=== PATIENT | female | born 1950 | race Caucasian/White ===

== ENCOUNTER 2021-07-03 18:36 | Emergency (ER) | payer MEDICARE, SELFPAY ==
--- NOTE | ~2021-07-03 | XR_ITS ---
XR foot LT min 3V DATE: 07/03/2021 19:19 INDICATION: Rolled foot. Lateral pain. TECHNIQUE: 4 views COMPARISON: None FINDINGS: There is a transverse nondisplaced intra-articular fracture of the base of the fifth metata rsal bone. Hallux valgus and bunion deformity. There is mild osteoarthritic change at the first metatarsophalangeal joint. Mild plantar calcaneal enthesopathy. Diffuse osteopenia. IMPRESSION: Linear nondisplaced intra-articular fracture of the base of the fifth metatarsal bone Reviewed, dictated and finalized at location A. IMPRESSION: Linear nondisplaced intra-articular fracture of the base of the fif th metatarsal bone
--- NOTE | ~2021-07-03 | XR_ITS ---
XR ankle LT min 3V DATE: 07/03/2021 19:19 INDICATION: Rolled ankle and foot. Lateral pain. TECHNIQUE: 4 views COMPARISON: None FINDINGS: There is soft tissue swelling, greater laterally. Diffuse osteopenia. No fracture or dislocation of the ankle or disruption of the ankle mortise is detected. There is a linear nondisplaced intra-articular fracture of the base of the fifth metatarsal bone. Plantar calcaneal enthesopathy. IMPRESSION: Ankle soft tissue swelling, greatest laterally Linear nondisplaced and articular fracture of the base of the fifth metatarsal bone Reviewed, dictated and finalized at location A.
[2021-07-03 18:44] VITALS: BP 114/50; PULSE 68; RESP 18; TEMP 36.9; O2SAT 99
--- NOTE | 2021-07-03 18:57 | ED.LOWEXIN ---
HPI - Extremity Injury (Lower) General Chief Complaint: Extremity Injury, Lower Stated Complaint: left foot injury Time Seen by Provider: 07/03/21 18:39 Source: patient Mode of arrival: wheelchair Limitations: no limitations History of Present Illness HPI Narrative: 70-year-old female presents to [facility] with complaints of pain and swelling to the lateral aspect of her left ankle and left foot since 1 PM today. Patient reports that her foot fell asleep when she attempted to get up and fell twisting her left foot and ankle. Patient denies hitting her head or loss of consciousness. Patient does report history of bilateral ankle swelling MD complaint: ankle injury and foot injury Onset (ago): hour(s) (6) Type of Injury: inversion Place: home Context: fall Other symptoms: none Related Data Home Medications Medication Instructions Recorded Confirmed cilostazol 50 mg PO BID 07/03/21 07/03/21 levothyroxine 125 mcg PO DAILY 07/03/21 07/03/21 losartan 25 mg PO DAILY 07/03/21 07/03/21 metformin 850 mg PO BID 07/03/21 07/03/21 pravastatin 40 mg PO BID 07/03/21 07/03/21 warfarin 4 mg PO DAILY 07/03/21 07/03/21 Allergies Allergy/AdvReac Type Severity Reaction Status Date / Time No Known Allergies Allergy Verified 07/03/21 18:56 Review of Systems Constitutional: Constitutional: Denies chills, Denies fatigue, Denies fever(s) and Denies weakness Cardiovascular: Cardiovascular: Denies chest pain, Denies rapid heart rate, Denies radiating jaw, neck or arm pain and Denies slow heart rate Respiratory: Respiratory: Denies cough and Denies dyspnea Gastrointestinal: Gastrointestinal: Denies abdominal pain, Denies diarrhea, Denies nausea and Denies vomiting Musculoskeletal: Musculoskeletal: Reports arthralgias and Reports joint swelling [facility] Past Medical History Medical History (Updated 07/03/21 @ 19:43 by Belkis Martinez APRN) CVA (cerebral vascular accident) Diabetes Hyperlipidemia Hypertension Surgical History Surgical History (Updated 07/03/21 @ 19:00 by Belkis Martinez APRN) Previous section Social History Social History (Updated 07/03/21 @ 18:59 by Belkis Martinez APRN) Smoking status: Current every day smoker Comments At time of signature, I agree with nursing past medical, surgical, social and family history. There is no relevant family history pertinent to the presenting complaint. Exam Const: General: healthy appearing and no acute distress Orientation/consciousness: patient oriented x3 Neck: Neck: normal visual inspection Resp: Effort & Inspection: normal respiratory effort, not labored and not tachypneic Auscultation: clear to auscultation bilaterally Cardio: Rate: regular rate Rhythm: regular rhythm and regular rhythm Skin: General skin exam: normal color Rashes: no rashes Wounds: no wounds Neuro: General: patient oriented x3, moves all extremities and no meningeal signs Extrem: Other: 2+ swelling noted to bilateral ankles and feet. There is moderate amount of tenderness noted to lateral aspect of left ankle and left foot upon palpation. There are no open wounds or erythema noted. Pulses are WNL. small 2cm area of bruising noted to lateral aspect of left ankle Psych: Mental Status: mental status grossly normal Affect: normal affect Attitude: cooperative Course Vital Signs Vital signs: Vital Signs Temperature 36.9 C 07/03/21 18:44 Pulse Rate 68 07/03/21 18:44 Respiratory Rate 18 07/03/21 18:44 Blood Pressure 114/50 L 07/03/21 18:44 Pulse Oximetry 99 07/03/21 18:44 Temperature 36.9 C 07/03/21 18:58 Pulse Rate 68 07/03/21 18:58 Respiratory Rate 18 07/03/21 18:58 Blood Pressure 114/50 L 07/03/21 18:58 Pulse Oximetry 99 07/03/21 18:58 MDM - Extremity Injury (Lower) MDM Narrative Medical decision making narrative: Discussed final x-ray results of fracture to left foot. Hiro wrap and postop shoe were applied to left foot. Cru
[2021-07-03 18:58] VITALS: BP 114/50; PULSE 68; RESP 18; TEMP 36.9; O2SAT 99
== END 2021-07-03 19:47 | disposition home or self-care (01) ==
PROVIDERS: Emergency Provider Nurse Practitioner Family; PCP Internal Medicine
DX: S92.355A Nondisplaced fracture of fifth metatarsal bone, left foot, initial encounter for closed fracture (principal); X50.9XXA Other and unspecified overexertion or strenuous movements or postures, initial encounter; Z86.73 Personal history of transient ischemic attack (TIA), and cerebral infarction without residual deficits; E11.9 Type 2 diabetes mellitus without complications; E78.5 Hyperlipidemia, unspecified; I10 Essential (primary) hypertension; F17.200 Nicotine dependence, unspecified, uncomplicated
CPT/HCPCS: 73610; 73630; 99214; G0463

== ENCOUNTER 2025-05-20 15:13 | Emergency (ER) | payer MEDICARE, SELFPAY ==
--- OUTSIDE RECORDS SUMMARY | 2025-05-20 15:16 | XMS_ITS | Clinical Summary ---
Author Organization [facility] Address [address], [address] [address] Phone Care Team Providers Care Oil Well Driller Name Role Phone Nick Coello MD Primary Care Provider [phone] Haile Grijalva MD Unavailable [phone] Allergies No known active allergies Medications hydrochlorothia zide 25 MG Tablet daily. Active pravastatin (PRAVACHOL) 40 MG Tablet 2 times daily. Activ e warfarin (COUMADIN) 5 MG Tablet daily. Takes on Wednesday and every other day takes a half of tablet Active ranitidine (ZANTAC) 150 MG Tablet 2 times daily. Activ e loratadine (EQ ALLERGY RELIEF) 10 MG Tablet daily. Active metoprolol Succinate (TOPROL-XL) 50 MG TABLET SR 24 HR Take 50 mg by mouth daily. 1.5 tablet daily 0 5 Active metFORMIN (GLUCOPHAGE) 850 MG Tablet Take 850 mg by mouth 2 times daily. 0 5 Active levothyroxine (SYNTHROID) 125 MCG Tablet Take 125 mcg by mouth daily. 3 5 Active PROAIR HFA 108 (90 BASE) MCG/ACT Aerosol Solution take 2 Puffs by inhalation as needed. 4 6 Active losartan (COZAAR) 25 MG Tablet Take 1 Tab by mouth daily. 1 6 Active pantoprazole (PROTONIX) 40 MG Tablet Delayed Response Take 1 Tab by mouth daily. 1 6 Active warfarin (COUMADIN) 1 MG Tablet Take 3 mg by mouth daily. Active FLUoxetine (PROZAC) 20 MG Capsule Take 20 mg by mouth daily. Active levothyroxine (SYNTHROID) 125 MCG Tablet Take 125 mcg by mouth daily. Active metoprolol Succinate (TOPROL-XL) 25 MG TABLET SR 24 HR Take 25 mg by mouth daily. Active metFORMIN (GLUCOPHAGE) 850 MG Tablet Take 850 mg by mouth 2 times daily. Active Levetiracetam 1000 MG Tablet Take 1,000 mg by mouth 2 times daily. Active lacosamide (VIMPAT) 100 MG Tablet Take 100 mg by mouth 2 times daily. Active methylphenidate (RITALIN) 5 MG Tablet Take 5 mg by mouth 2 times daily. Active losartan (COZAAR) 25 MG Tablet Take 25 mg by mouth daily. Active cilostazol (PLETAL) 50 MG Tablet Take 50 mg by mouth 2 times daily. Active pravastatin (PRAVACHOL) 40 MG Tablet Take 40 mg by mouth every evening. Active Aspirin 81 MG Tablet Take 81 mg by mouth daily. Active cilostazol (PLETAL) 50 MG Tablet Take 50 mg by mouth 2 times daily. Active albuterol (VENTOLIN HFA) 108 (90 Base) MCG/ACT Aerosol Solution take 2 Puffs by inhalation every 4 hours as needed for Wheezing. Active Active Problems Problem Noted Date Diagnosed Date Lymphadenopathy 08/12/2016 HTN (hypertension) Asymptomatic carotid artery stenosis Obesity Overview (2015): morbid DM (diabetes mellitus) Tobacco abuse Immunizations Immunization Administration Dates Next Due Covid-19, Mrna, Lnp-s, PF, 1 00 mcg/0.5 mL Dose (Moderna) 02/04/2021,01/07/2021 Influenza Vaccine greater than 3 yrs 09/10/2015 Family History Medical History Relation Name Comments Diabetes Father Heart Disease Father Cancer Maternal Grandfather unknown Heart Disease Paternal Grandfather Diabetes Son Relation Name Status Comments Father Maternal Grandfather Mother Paternal Grandfather Son Social History Tobacco Use Types Packs/Day Years Used Date Smoking Tobacco: Every Day Cigarettes 1.5 45 Tobacco Cessation:Ready to Q uit: No; Counseling Given: No Alcohol Use Standard Drinks/Week Comments Yes 0 (1 standard drink = 0.6 oz pur e alcohol) Once a year Comments No Sex and Gender Information Value Date Recorded Sex Assigned at Not on file Legal Sex Female 9:35 PM CDT Gender Identity Not on file Sexual Orientation Not on file Last Filed Vital Signs Vital Sign Reading Time Taken Comments Blood Pressure 120/78 08/12/2016 10:01 AM CDT Pulse 72 08/12/2016 10:01 AM CDT Temperature 37.2 C (98.9 F) 08/12/2016 10:01 AM CDT Respiratory Rate 21 08/12/2016 10:0 1 AM CDT Oxygen Saturation - - Inhaled Oxygen Concentration - - Weight 110.6 kg (243 lb 12.8 oz) 2015 10:01 AM CDT Height 165.1 cm (5' 5) 08/12/2016 10:0 1 AM CDT Body Mass Index 40.57 08/12/2016 10:01 AM CDT Plan of Treatment Health Maintenance Due Date Last Done Comments Diabetes: Eye Exam 1949 Diabetes: Foot Exam 1949 Diabetes: Hemoglobin A1c 1949 Hepatitis C Virus (HCV) Screening 1950 TdaP Immunization 1949 Pneumococcal Immunization (50+ years) (1 of 2 - PCV) 1968 03/29/2013 Cologuard 1994 Colonoscopy 1994 Colorectal Cancer Screening 1994 Immunochemical Fecal Occult Blood 1994 Diabetes: Nephropathy Screening 08/25/2017 08/25/2016 Zoster Immunization (2 of 2) 09/27/2019 08/02/2019 SARS-COV-2 Immunization ( - 2023- season) 2024 03/10/2022, 09/25/2021, 02/04/2021, Additional history exists Respiratory Syncytial Virus (RSV) Immunization (Adult) (1 - 1-dose 75+ series) 2024 Influenza Immunization (#1) 2025 10/0 07/2020, 09/08/2019, 11/01/2017, Additional history exists DTaP/Tdap/Td Immunization Discontinued 05/16/2010 Pneumococcal Immunization Combined Discontinued 03/29/2013 Hepatitis B Immunization Aged Out No longer eligible based on patient's age to complete this topic Human Papillomavirus (HPV) Immunization Aged Out No longer eligible based on patient's age to complete this topic Meningococcal Immunization (ACWY) Aged Out No longer eligible based on patient's age to complete this topic Rotavirus Immunization Aged Out No lo nger eligible based on patient's age to complete this topic Procedures Procedure Name Priority Date/Time Associated Diagnosis Comments CREATININE BLOOD W/ GFR STAT 08/25/2016 9:12 AM CDT from Last 3 Months or Most Recently Relevant to Health Maintenance Results * (ABNORMAL) Creatinine Blood w/ GFR (08/25/2016 9:12 AM CDT) CREATININE, BLOOD 1.03 0.60 - 1.30 mg/dL 08/25/2016 9:40 AM CDT [facility] GFR, EST. NONAFRICAN 54(L) >=60 08/25/2016 9:40 AM CDT [email or web address] GFR, EST. >60 >=60 08/25/2016 9:40 AM CDT [facility] [[email or web address] Comment: Creatinine Clearance is the preferred criteria for selecting drug dose adjustments in renally impaired patients. The GFR is provided as addtional pertinent clinical information. GFR is reported in mL/min/1.73 sq m Blood specimen (specimen) No Phlebotomy Charged / Unknown 08/25/2016 9:12 AM CDT 08/25/2016 9:21 AM CDT us Haile Grijalva MD CHEMISTRY ORDERABLES Final Res ult [facility] [address] [place] [address] from Last 3 Months or Most Recently Relevant to Health Maintenance Insurance MEDICARE C [facility] Care Teams Oil Well Driller Relationship Specialty Start Date End Date Nick Coello MD [address] [place] [address] PCP - General Internal Medicine 10/02/15 Haile Grijalva MD [address] [place] [address] General Surgery 10/24/15
--- OUTSIDE RECORDS SUMMARY | 2025-05-20 15:18 | XMS_ITS | Encounter Summary ---
Author Organization [facility] Address [address] [place] [address] Care Team Providers Care Automation Qa Lead Name Role Phone Nick Coello MD Primary Care Provider [phone] Santana Martinez MD Unavailable [phone] Rodolfo Reyes NP Unavailable [phone] Encounter Details Date Type Department Care Team (Late st Contact Info) Description 08/23/2024 Telephone [facility] [address] [place] [id number] Denise Ramos RN Social History Tobacco Use Types Packs/Day Years Used Date Smoking Tobacco: Every Day Cigarettes 1.5 57 Started: [birth year]/11/1968 Smokeless Tobacco: Former Alcohol Use Standard Drinks/Week Comments No 0 (1 standard drink = 0.6 oz pur e alcohol) AUDIT-C Answer Date Recorded Q1: How often do you have a drink containing alc ohol? Monthly or less 11/10/2023 Q2: How many drinks containi ng alcohol do you have on a typical day when you are drinking? 1 or 2 11/10/2023 Q3: How often do you have si x or more drinks on one occasion? Never 11/10/2023 PHQ-2 Answer Date Recorded PHQ-2 Total Score 0 09/02/2022 Personal Safety Answer Date Recorded Have you ever been in or are you currently in a harmful physical or emotional relationship or is someone making you feel afraid or unsafe? Denies 11/10/2023 Comments No Sex and Gender Information Value Date Recorded Sex Assigned at Not on file Legal Sex Female 12:03 PM [facility] Gender Identity Not on file Sexual Orientation Not on file Occupation Industry Job Start Date Job End Date retired Not on file Not on file Not on file documented as of this encounter Miscellaneous Notes * Telephone Encounter - Denise Ramos RN - 08/24/2024 12:47 PM CDT documented in this encounter Plan of Treatment Upcoming Encounters Date Type Department Care Team (Late st Contact Info) Description 05/29/2025 10:30 AM CDT Hospital Encounter [facility] Operating Room [address] [place] [address] Tommy Ford MD [address] [place] [address] [address] [place] [address] 05/29/2025 10:30 AM CDT - 05/29/2025 12:10 PM CDT Surgery [facility] Operating Room [address] [place] [address] Tommy Ford MD [address] [place] [address] [address] [place] [address] LEFT LUMPECTOMY WITH WIRE LOCALIZATION Scheduled Procedures Name Priority Associated Diagnoses Date/Ti me LUMPECTOMY Ductal carcinoma in situ (DCIS) of left breast 05/29/2025 10:30 AM CDT documented as of this encounter Visit Diagnoses Not on filedocumented in this encounter Care Teams Automation Qa Lead Relationship Specialty Start Date End Date Nick Coello MD PCP - General 02/12/17 Santana Martinez MD Consulting Physician Cardiology 01/20/18 Rodolfo Reyes NP Nurse Practitioner Urology 12/22/23 documented as of this encounter
--- OUTSIDE RECORDS SUMMARY | 2025-05-20 15:18 | XMS_ITS | Encounter Summary ---
Author Organization [facility] Address [address] [place] [address] Phone Care Team Providers Care Safety Belt Installer Name Role Phone Nick Coello MD Primary Care Provider [phone] Santana Martinez MD Unavailable [phone] Rodolfo Reyes NP Unavailable [phone] Encounter Details Date Type Department Care Team (Late st Contact Info) Description 07/03/2021 Orders Only [facility] [address] [place] [address] Scanning, Provider Social History Tobacco Use Types Packs/Day Years Used Date Smoking Tobacco: Every Day Cigarettes 1.5 50 Started: 05/11/1968; Last attempted to quit: 03/19/2018 Smokeless Tobacco: Former Alcohol Use Standard Drinks/Week Comments No 0 (1 standard drink = 0.6 oz pur e alcohol) PHQ-2 Answer Date Recorded PHQ-2 Total Score (If total score is 3 or more points, staff should administer the PHQ-9) 5 02/13/2021 Comments No Sex and Gender Information Value Date Recorded Sex Assigned at Not on file 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 Gender Identity Not on file Sexual Orientation Not on file Occupation Industry Job Start Date Job End Date retired Not on file Not on file Not on file documented as of this encounter Plan of Treatment Upcoming Encounters Date Type Department Care Team (Late st Contact Info) Description 05/29/2025 10:30 AM CDT Hospital Encounter [facility] Operating Room [address] [place] [address] Tommy Ford MD [address] [facility] [address] [place] [address] 05/29/2025 10:30 AM CDT - 05/29/2025 12:10 PM CDT Surgery [facility] Operating Room [address] [place] [address] Tommy Ford MD [address] [facility] [address] [place] [address] LEFT LUMPECTOMY WITH WIRE LOCALIZATION Scheduled Procedures Name Priority Associated Diagnoses Date/Ti me LUMPECTOMY Ductal carcinoma in situ (DCIS) of left breast 05/29/2025 10:30 AM CDT documented as of this encounter Procedures Procedure Name Priority Date/Time Associated Diagnosis Comments SCAN - RADIOLOGY/IMAGING 07/03/2021 documented in this encounter Results * SCAN - RADIOLOGY/IMAGING (07/03/2021) Anatomical Region Laterality Modality Other us Provider Scanning Edited Result - Final documented in this encounter Visit Diagnoses Not on filedocumented in this encounter Care Teams Safety Belt Installer Relationship Specialty Start Date End Date Nick Coello MD PCP - General 02/12/17 Santana Martinez MD Consulting Physician Cardiology 01/20/18 Rodolfo Reyes NP Nurse Practitioner Urology 12/22/23 documented as of this encounter
--- OUTSIDE RECORDS SUMMARY | 2025-05-20 15:18 | XMS_ITS | Encounter Summary ---
Author Organization [facility] Address [address] [place] [address] Care Team Providers Care Telegraph Office Telephone Clerk Name Role Phone Nick Coello MD Primary Care Provider [phone] Santana Martinez MD Unavailable [phone] Rodolfo Reyes NP Unavailable [phone] Encounter Details Date Type Department Care Team (Late st Contact Info) Description 04/16/2025 Telephone [facility] [address] [place] [id number] Aline Sanders, LISA Social History Tobacco Use Types Packs/Day Years [...] Date Recorded PHQ-2 Total Score 0 09/02/2022 PHQ-9 Answer Date Recorded PHQ-9 Total Score 14 11/27/2024 Personal Safety Answer Date Recorded Have you ever been in or are you currently in a harmful physical or emotional relationship or is someone making you feel afraid or unsafe? 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 Gender Identity Not on file Sexual Orientation Not on file Occupation Industry Job Start Date Job End Date retired Not on file Not on file Not on file documented as of this encounter Plan of Treatment Upcoming Encounters Date Type Department Care Team (Late st Contact Info) Description 05/29/2025 10:30 AM CDT Hospital Encounter [facility] Operating Room [address] [place] [address] Tommy Ford MD [address] [facility] [address] [place] [address] 05/29/2025 10:30 AM CDT - 05/29/2025 12:10 PM CDT Surgery [facility] Operating Room [address] [place] [address] Tommy Ford MD [address] [facility] [address] [place] [address] LEFT LUMPECTOMY WITH WIRE LOCALIZATION Scheduled Procedures Name Priority Associated Diagnoses Date/Ti me LUMPECTOMY Ductal carcinoma in situ (DCIS) of left breast 05/29/2025 10:30 AM CDT documented as of this encounter Visit Diagnoses Not on filedocumented in this encounter Care Teams Telegraph Office Telephone Clerk Relationship Specialty Start Date End Date Nick Coello MD PCP - General 02/12/17 Santana Martinez MD Consulting Physician Cardiology 01/20/18 Rodolfo Reyes NP Nurse Practitioner Urology 12/22/23 documented as of this encounter
--- OUTSIDE RECORDS SUMMARY | 2025-05-20 15:18 | XMS_ITS | Encounter Summary ---
[facility] [address] [place] [address] Phone Care Team Providers Care Dictating Transcribing Machine Servicer Name Role Phone Nick Coello MD Primary Care Provider [phone] Santana Martinez MD Unavailable [phone] Rodolfo Reyes NP Unavailable [phone] Encounter Details Date Type Department Care Team (Late st Contact Info) Description 07/23/2017 Orders Only [facility] [address] [place] [address] Nick Coello MD [address] [address] Social History Tobacco Use Types Packs/Day Years Used Date Smoking Tobacco: Never Assessed Comments Unknown Sex and Gender Information Value Date Recorded Sex Assigned at Not on file 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 Gender Identity Not on file Sexual Orientation Not on file documented as of this encounter Plan of Treatment Upcoming Encounters Date Type Department Care Team (Late st Contact Info) Description 05/29/2025 10:30 AM CDT Hospital Encounter [facility] Operating Room [address] [place] [address] Tommy Ford MD [address] [facility] [address] [place] [address] 05/29/2025 10:30 AM CDT - 05/29/2025 12:10 PM CDT Surgery [facility] Operating Room [address] [place] [address] Tommy Ford MD [address] [facility] [address] [place] [address] LEFT LUMPECTOMY WITH WIRE LOCALIZATION Scheduled Procedures Name Priority Associated Diagnoses Date/Ti me LUMPECTOMY Ductal carcinoma in situ (DCIS) of left breast 05/29/2025 10:30 AM CDT documented as of this encounter Procedures Procedure Name Priority Date/Time Associated Diagnosis Comments SCAN - RADIOLOGY/IMAGING 07/23/2017 3:03 PM CDT documented in this encounter Results * SCAN - RADIOLOGY/IMAGING (07/23/2017 3:03 PM CDT) Anatomical Region Laterality Modality Other us Nick Coello MD Final Resu lt documented in this encounter Visit Diagnoses Not on filedocumented in this encounter Care Teams Dictating Transcribing Machine Servicer Relationship Specialty Start Date End Date Nick Coello MD PCP - General 02/12/17 Santana Martinez MD Consulting Physician Cardiology 01/20/18 Rodolfo Reyes NP Nurse Practitioner Urology 12/22/23 documented as of this encounter
--- OUTSIDE RECORDS SUMMARY | 2025-05-20 15:18 | XMS_ITS | Referral Summary ---
Author Organization [facility] Address [address] [place] [address] Care Team Providers Care Manager Of Software Development Name Role Phone Nick Coello MD Primary Care Provider + [phone] Santana Martinez MD Unavailable [phone] Rodolfo Reyes NP Unavailable [phone] Encounters Date Type Department Care Team Description 05/16/2025 Telephone [facility] [address] [place] [address] Nick Coello MD 05/16/2025 Orders Only [address] [place] [address] Tommy Ford MD Ductal carcinoma in situ (DCIS) of left breast (Primary Dx) 05/16/2025 10:20 AM CDT Office Visit [address] [place] [address] Tommy Ford MD Ductal carcinoma in situ (DCIS) of left breast (Primary Dx) 05/14/2025 Anticoagulation Visit [facility] [address] [place] [address] Nick Coello MD 05/03/2025 Anticoagulation Visit [facility] [address] [place] [phone] Nick Coello MD 05/02/2025 Telephone [facility] [address] [place] [phone] Nick Coello MD 04/19/[address] [address] Aline Sanders, LISA 04/18/2025 Results Follow-Up [facility] [address] [facility] [address] [place] [phone] Nick Coello MD Surgical pathology 04/16/2025 Results Follow-Up [facility] [address] [place] [phone] Erin Chau LPN [facility]INR, aPTT 04/16/2025 9:55 AM CDT Lab [address] [address] 04/16/[address] [address] Aline Sanders, LISA 04/16/2025 9:48 AM CDT - 04/16/2025 11:59 PM CDT Hospital Encounter [address] [address] 1, Amh Rad Rn Rad, Amh Breast Abnormal mammogram Discharge Disposition: Discharge to home or self care 04/11/2025 Anticoagulation Visit [facility] [address] [facility] [address] [place] [phone] Nick Coello MD 04/04/[address] [address] Aline Sanders, LISA 04/02/[address] [address] Aline Sanders, LISA 03/29/2025 Telephone [facility] [address] [place] [address] Aline Sanders RN 03/27/2025 Telephone [facility] [place] [address] [place] [address] Aline Sanders RN 03/26/2025 Telephone [facility] [address] [place] [address] Nick Coello MD 03/26/2025 9:00 AM CDT Ancillary Procedure [facility] [address] [facility] [address] [place] [address] Abnormal mammogram 03/26/2025 8:30 AM CDT Ancillary Procedure [facility] 1 [facility] [address] [place] [address] Abnormal mammogram 03/19/2025 Anticoagulation Visit [facility] [address] [facility] [address] [place] [address] Nick Coello MD 03/19/2025 Telephone [facility] [address] [facility] [address] [place] [address] Nick Coello MD ASKING ABOUT LEFT STEREOTACTIC BREAST BIOPSY 02/27/2025 Anticoagulation Visit [facility] [address] [facility] [address] [place] [address] Nick Coello MD from Last 3 Months Allergies No known active allergies Medications albuterol HFA (ProAir HFA) 90 mcg/actuation inhaler Inhale 2 puffs every 4 (four) hours as needed for wheezing 1 Inhaler 3 021 Active Additional Information Patient not taking.Reported on 05/16/2025 furosemide (LASIX) 20 mg tablet Take 1 tablet (20 mg total) by mouth 2 (two) times a day 180 tablet 1 024 Active nystatin powder Apply topically 4 (four) times a day 15 g 3 024 2024 Active cephalexin (KEFLEX) 500 mg capsule Take 1 capsule (500 mg total) by mouth nightly 90 capsule 024 Active traMADoL (ULTRAM) 50 mg tabletIndications :Acute left-sided low back pain without sciatica Take 1 tablet (50 mg total) by mouth 3 times daily as needed for left low back pain. 21 tablet 024 Active Additional Information Patient not taking.Reported on 05/16/2025 warfarin (COUMADIN) 1 mg tabletIndications :PAD (peripheral artery disease) TAKE 1 TO 3 TABLETS BY MOUTH ONCE DAILY DIRECTED BY PHYSICIAN 300 tablet [address] (PROTONIX) 40 mg EC tabletIndications :Gastroesophageal reflux disease, unspecified whether esophagitis present TAKE 1 TABLET BY MOUTH DAILY 90 tablet 1 025 Active pravastatin (PRAVACHOL) 40 mg tabletIndications :Mixed 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 (HCC) TAKE 1 TABLET BY MOUTH DAILY 90 tablet 1 025 Active levothyroxine (SYNTHROID) 125 mcg tabletIndications :Acquired hypothyroidism Take 1 tablet (125 mcg total) by mouth government affairs fellow before breakfast 90 tablet 1 025 Active cilostazoL (PLETAL) 50 mg tabletIndications :Peripheral artery disease TAKE 1 TABLET BY MOUTH TWICE DAILY 180 tablet 1 025 Active metoprolol XL (TOPROL-XL) 50 mg extended release tabletIndications :Hypertension, essential TAKE 1 TABLET BY MOUTH DAILY 90 tablet 1 025 Active warfarin (COUMADIN) 3 mg tabletIndications :Venous Thrombosis TAKE 1 TO 2 TABLETS BY MOUTH DAILY DIRECTED BY MD PER INR RESULTS 200 tablet 1 025 Active levETIRAcetam (KEPPRA) 1,000 mg tabletIndications :New onset seizure (HCC) TAKE 1 TABLET BY MOUTH TWICE DAILY 180 tablet 1 025 Active losartan (COZAAR) 50 mg tabletIndications :Hypertension, essential Take 1 tablet (50 mg total) by mouth daily 90 tablet 1 025 Active losartan (COZAAR) 50 mg tablet TAKE 1 TABLET BY MOUTH DAILY 100 tablet 2 024 2024 Discontinued(R eorder) warfarin (COUMADIN) 3 mg tabletIndications :History of DVT in adulthood TAKE 1 TO 2 TABLETS BY MOUTH DAILY DIRECTED BY MD PER INR RESULTS 200 tablet 2 024 2024 Discontinued levETIRAcetam (KEPPRA) 1,000 mg tabletIndications :New onset seizure (HCC) TAKE 1 TABLET BY MOUTH TWICE DAILY 180 tablet 1 025 2024 Discontinued Active Problems Problem Noted Date Diagnosed Date Ductal carcinoma in situ (DCIS) of left breast 0 05/16/2025 Mixed diabetic hyperlipidemi a associated with type 2 diabetes mellitus 05/29/2024 Assessment & Plan (05/29/2024 2:01 PM CDT): Diabetes great control HgbA1c for last 3 years have been between 6.1 and 6.8, lipid profiles in therapeutic range patient will continue Pravachol 40 mg daily, metformin 850 mg twice a day. Component Latest Ref Rng 05/29/2024 Cholesterol 30 - 199 mg/dL 151 Triglycerides <=149 mg/dL 192 (H) HDL Cholesterol >=40 mg/dL 36 (L) LDL Cholesterol Calc <=129 mg/dL 77 Non-HDL Cholesterol mg/dL 115 Chol/HDL ratio 4 Legend: (H) High (L) Low Swollen feet 03/09/2024 Assessment & Plan (01/26/2025 8:54 AM CDT): Patient referred to lymphedema Clinic [facility]. Note for November 27 2024 Assessment & Plan (05/29/2024 2:02 PM CDT): Feet are swollen left worse than right questioning whether not this is lymphedema present. Is not interested in trying any support hose. No Evidence of CHF Assessment & Plan (03/09/2024 6:34 PM CDT): Patient's feet are swollen for last 3 days. She has not wearing shoes because of feet are so swollen.. . She has a open area on the left foot secondary to swollen stretching of the skin. . . She is to give me a report in the next 3-4 days regarding swelling status she we need he is the dosage to 40 mg of furosemide. She understands elevate her feet patient has no symptoms of overt heart failure. No other changes were made. I did not discuss dietary changes which could be responsible for swelling. History of recurrent deep vein thrombosis (DVT) 02/19/2024 Assessment & Plan (01/26/2025 8:57 AM CDT): Patient is maintained on Coumadin for least 6 years without complications. Assessment & Plan (02/19/2024 4:35 PM CDT): Patient has been maintained on Coumadin without difficulty for greater than 5 years for recurrent DVT. No change in therapy patient is compliant in following up for protime PAD (peripheral artery disease) 09/08/2023 Infrarenal abdominal aortic aneurysm (AAA) witho ut rupture 09/08/2023 Assessment & Plan (01/26/2025 8:53 AM CDT): Patient has not follow through with appointment with vascular surgery. With some delay secondary to recurrent urinary tract infections which have now been taken care of. Assessment & Plan (05/29/2024 2:03 PM CDT): Patient understands she is appointment with vascular surgeon almost 2023 she intends to keep this appointment Assessment & Plan (02/19/2024 4:30 PM CDT): Patient elective procedure /surgery for repair of aortic aneurysm has been placed on hold repeatedly because of urinary tract infections patient will be following up with Urology for management of this recurrent UTI Assessment & Plan (10/31/2023 4:27 PM NETWORK ANALYST): Patient is here for annual exam she feels well. Patient is scheduled for repair of aortic aneurysm November 18, 2023 [facility] she is already started the preop evaluation at [place]. She is in no distress at this time. Balance problem 02/23/2023 Assessment & Plan (08/01/2023 6:02 PM CDT): Patient's gait is improved she is had no falls since her last visit with me. Patient did complete physical therapy for gait training and evaluation Assessment & Plan (02/23/2023 12:10 PM CDT): Patient walks very slow and very cautious she is insecure sometimes with walking she is not had had a recent fall I am referring her to physical therapy for balance evaluation and therapy. Menopause 02/23/2023 Assessment & Plan (02/23/2023 12:11 PM CDT): Bone density requested. Urge incontinence of urine 09/02/2022 Assessment & Plan (05/29/2024 2:04 PM CDT): Patient has appointment with Urology on 06/07/2024. She has had urinary incontinence and episodes of UTI. Assessment & Plan (08/01/2023 6:03 PM CDT): Symptoms present medication oxybutynin 5 mg day Assessment & Plan (09/02/2022 6:26 PM CDT): Patient advised me she has been incontinent urine approximate 6 months is getting to be a daily problem. I am prescribing for her oxybutynin 5 mg daily will titrate up as needed. Systolic murmur 06/06/2022 New onset seizure 06/05/2022 Assessment & Plan (08/01/2023 6:02 PM CDT): Patient remains on Keppra no seizures at this time. Assessment & Plan (02/23/2023 12:11 PM CDT): No change in therapy patient's free of any seizures at this time Assessment & Plan (09/02/2022 6:29 PM CDT): Patient has had no further seizures she is tolerating the medication Keppra 1000 mg b.i.d.. This was started last month when she is admitted to the hospital for seizures. Patient's history of subdural hematoma 2017. No change in therapy at this time Assessment & Plan (06/16/2022 6:03 PM CDT): Patient a fall subdural hematoma March 17, 2018 she did have surgery for this. Patient was placed on anti seizure medicine to time after 6 months she stopped it. She recently had a seizure and was in the hospital for 3 days and she is now on Keppra 1000 mg twice a day. She has been on approximately 10 days she feels a little bit off balance on levels E with the medication. Advised to continue medicine I will see her back in 2 months. She has had no further seizures Carotid bruit 03/05/2022 History of subdural hematoma 01/14/2020 Assessment & Plan (01/14/2020 4:18 PM NETWORK ANALYST): Subcu hematoma May 2018 patient is full recovery. Hospital discharge follow-up 07/15/2018 Assessment & Plan (06/16/2022 6:09 PM CDT): Hospital follow-up for the admission date 06/06/2022 discharge 06/08/2022 please see notes under new onset seizures for the office visit date of 06/16/2022 Assessment & Plan (07/15/2018 5:59 PM CDT): Patient here for hospital follow-up she has had 2 hospitalizations since I last saw her in March 08 she was treated for intermittent claudication with a stent placed in left lower extremity. This was done at [facility]. . March 26, 2018 she had a fall at home had a subdural hematoma was treated at [facility] had craniotomy done.. Patient subsequently went to [facility] for several weeks. Patient is now at home she has undergone physical therapy HOSPITAL RECONCILIATION SOME MEDICINES HAS BEEN COMPLETED.. PATIENT THIS TIME IS [facility] SHE WALKS WITH A WALKER SHE HAD LACKING SOME COMPONENTS OF FINE MOTOR SKILLS WITH THE FINGERS. She has a follow-up appointment with her neurosurgeon next few weeks she is on anti seizure medicine which is standard falling such procedures is craniotomy. Patient made aware that she is still driving restrictions from the neurosurgeon. Patient was started on Ritalin while in the hospital following her procedure for craniotomy. She communicates well answers all questions appropriately. Hypertension, essential 04/26/2018 Assessment & Plan (01/26/2025 8:56 AM CDT): Hypertension at goal 112/70 patient is on losartan 50 mg daily metoprolol 50 mg daily Assessment & Plan (05/29/2024 2:40 PM CDT): Hypertension at goal losartan 50 mg daily Lasix on a p.r.n. basis 20 mg Assessment & Plan (02/19/2024 4:36 PM CDT): Blood pressure elevated on today's visit review of her chart 80% of the time patient's blood pressure is in range. Will continue to monitor. Increase metoprolol to 50 mg daily. Assessment & Plan (10/31/2023 4:25 PM NETWORK ANALYST): Hypertension well controlled patient is tolerating medications Assessment & Plan (08/01/2023 6:02 PM CDT): Blood pressure remains reasonably controlled patient is tolerating medications no change in therapy Assessment & Plan (02/23/2023 12:14 PM CDT): Blood pressure remains well controlled patient is tolerating medications no change in therapy Assessment & Plan (09/02/2022 6:27 PM CDT): Blood pressure well controlled patient is tolerating medications no change in therapy Assessment & Plan (06/16/2022 6:04 PM CDT): Blood pressure is very well controlled patient is tolerating medications. He has had strokes in the past with full recovery she has had a subdural hematoma.. MRI head shows a micro ischemic changes. Assessment & Plan (08/21/2021 2:25 PM CDT): Hypertension has been very well controlled continue present medications. Patient is tolerating medicines no symptoms referable to hypertension. Assessment & Plan (02/14/2021 9:50 AM CDT): Hypertension well controlled patient is tolerating medications no change in therapy. Assessment & Plan (01/14/2020 4:16 PM NETWORK ANALYST): Blood pressure well controlled patient is tolerating medications no change in therapy. Assessment & Plan (07/31/2019 5:55 PM CDT): Blood pressure well controlled patient tolerating medications no change in therapy. Assessment & Plan (04/02/2019 7:39 PM CDT): Hypertension is improving with treatment. Continue current treatment regimen. Dietary sodium restriction. Regular aerobic exercise. Continue current medications. Blood pressure will be reassessed at the next regular appointment. Assessment & Plan (01/28/2019 12:44 PM CDT): . Patient's blood pressure is well controlled she is tolerating medications no change in therapy. Assessment & Plan (07/15/2018 6:01 PM CDT): Blood pressure well controlled on present medications. Encounter for Medicare annual wellness exam 09/16 Assessment & Plan (01/26/2025 8:50 AM CDT): History and physical completed patient's health risk assessment health maintenance reviewed and addressed . Visit November 27, 2024 Assessment & Plan (10/31/2023 4:31 PM NETWORK ANALYST): Patient did not get the lung cancer screening March of 2022 will reschedule his after her surgery on aortic aneurysm we will schedule this on next visit to occur around March or April of 2024. Patient was administered flu vaccine on visit of 10/30/2023 Assessment & Plan (02/23/2023 12:10 PM CDT): History and physical completed patient's health risk assessment health maintenance reviewed in addressed.. This includes mammogram, bone density, routine lab for diabetes. Assessment & Plan (03/05/2022 12:30 PM CDT): History and physical completed patient's health risk assessment health maintenance reviewed in addressed. Patient will get a lung cancer screen. Chronic health problems are addressed during this visit.. Patient's subdural hematoma many years ago. And she is concerned regarding carotid artery disease which will check on ultrasound of carotid arteries. Assessment & Plan (02/14/2021 9:46 AM CDT): Patient physical completed patient's health risk assessment health maintenance addressed reviewed. No new health problems since her last visit chronic problems reviewed. Assessment & Plan (10/13/2017 1:23 PM NETWORK ANALYST): Patient here for annual exam she has a history of diabetes DVT recurrence hypothyroid vascular disease continues to smoke. All his problems are discussed and addressed Type 2 diabetes mellitus without complication Assessment & Plan (01/26/2025 8:55 AM CDT): Diabetes control at goal without medications Hgb A1C Estim. Avg Glu (eAG) Latest Ref Rng 4.0 - 5.6 % mg/dL 02/13/2021 6.3 (H) 134 08/21/2021 6.4 (H) 137 03/05/2022 6.8 (H) 148 06/06/2022 6.4 (H) 137 02/23/2023 6.3 (H) 134 07/27/2023 6.0 (H) 126 01/25/2024 6.1 (H) 128 11/27/2024 6.6 (H) 143 Legend: (H) High Assessment & Plan (02/19/2024 4:29 PM CDT): Diabetes has been very well controlled HgbA1c for last 5 years . Arrange has been 6.0-6.8 no changes in therapy she has no symptoms referable to her diabetes. Diet controlled Assessment & Plan (10/31/2023 4:30 PM NETWORK ANALYST): Diabetes well controlled HgbA1c 5.7 on October 11, 2023 change in therapy patient is asymptomatic with respect to her diabetes. Patient's advised very strongly to get an annual eye exam Assessment & Plan (08/01/2023 5:59 PM CDT): Diabetes remains well controlled patient's hemoglobin HgbA1c 6.0 as of July 23, 2023 patient does not experience any hypoglycemia patient's glucometer results reviewed. Assessment & Plan (02/23/2023 12:13 PM CDT): Diabetes stable patient advised me she has had a current eye exam foot exam is good diabetic greater than 20 years she is maintain on metformin at this time. Update her lab today referring to hemoglobin HgbA1c and a BMP. Last creatinine clearance was 56 EGFR 10 months ago. Component Hgb A1C Latest Ref Rng & Units 4.0 - 5.6 % 01/03/2019 6.3 (H) 07/31/2019 6.6 (H) 01/02/2020 6.7 (H) 02/13/2021 6.3 (H) 08/21/2021 6.4 (H) 03/05/2022 6.8 (H) 06/06/2022 6.4 (H) Assessment & Plan (09/02/2022 6:27 PM CDT): Diabetes continues to be very well control no change in therapy. Component Hgb A1C Latest Ref Rng & Units 4.0 - 5.6 % 11/01/2017 8.8 (H) 03/18/2018 8.9 (H) 04/03/2018 7.6 (H) 01/03/2019 6.3 (H) 07/31/2019 6.6 (H) 01/02/2020 6.7 (H) 02/13/2021 6.3 (H) 08/21/2021 6.4 (H) 03/05/2022 6.8 (H) 06/06/2022 6.4 (H) Assessment & Plan (06/16/2022 6:06 PM CDT): Diabetes well control metformin 850 twice a day no change in therapy Component Hgb A1C Latest Ref Rng & Units 4.0 - 5.6 % 01/03/2019 6.3 (H) 07/31/2019 6.6 (H) 01/02/2020 6.7 (H) 02/13/2021 6.3 (H) 08/21/2021 6.4 (H) 03/05/2022 6.8 (H) 06/06/2022 6.4 (H) Assessment & Plan (03/05/2022 12:31 PM CDT): Diabetes has been very well controlled. Update hemoglobin HgbA1c lipid profile urine for microalbuminuria. Component Hgb A1C Latest Ref Rng & Units 4.0 - 5.6 % 07/01/2017 8.3 (H) 11/01/2017 8.8 (H) 03/18/2018 8.9 (H) 04/03/2018 7.6 (H) 01/03/2019 6.3 (H) 07/31/2019 6.6 (H) 01/02/2020 6.7 (H) 02/13/2021 6.3 (H) 08/21/2021 6.4 (H) Assessment & Plan (08/21/2021 2:29 PM CDT): Patient's hemoglobin HgbA1c is been very good last several visits between 6.2 and 6.8. Will update HgbA1c today. Patient's reminded to get an eye exam annually. Assessment & Plan (02/14/2021 9:50 AM CDT): Hemoglobin HgbA1c is 6.3 this is a very good number no change in therapy Assessment & Plan (06/29/2020 4:12 PM CDT): Diabetes has been well control no change in therapy patient get an update on lab today no vision problem no polyuria polyphagia polydipsia patient's managed to get an eye annual eye exam Assessment & Plan (01/14/2020 4:19 PM NETWORK ANALYST): Diabetes well controlled update labs a hemoglobin HgbA1c B12 lipid profile no change in therapy at this time. Assessment & Plan (07/31/2019 5:56 PM CDT): Patient's diabetes has been well controlled will get an update on hemoglobin HgbA1c today. Patient's diabetic eye exam is current this is updated in the chart. Examination of her feet is no evidence of any neurovascular compromise with respect to her feet Assessment & Plan (04/02/2019 7:40 PM CDT): Diabetes very well controlled hemoglobin HgbA1c 6.3 continue present medications.. Assessment & Plan (01/28/2019 12:44 PM CDT): Patient's denies any polyuria polyphagia polydipsia she reports that her glucometer readings are been reasonably good however she did not bring her glucometer today.. Plans at this time repeat hemoglobin HgbA1c BMP fasting lipid profile number urine for microalbuminuria see her back in the next several months. Will make changes over the lower if need be regarding her diabetes management. Assessment & Plan (07/15/2018 6:00 PM CDT): Diabetic patient several years never on insulin on long-term basis outpatient. Will check a hemoglobin HgbA1c today. Patient previously on short and she is not on this medication at this time. Assessment & Plan (01/01/2018 4:11 PM NETWORK ANALYST): Patient not using her glucometer therefore she can't give any results. Re- emphasized is very important she get a on Q glucometer use her routine basis. Fructosamine level on 11/01/2017 was very good. However HgbA1c was not good is 8.8. She understands the diabetes has influence on her blood vessels. she is having no complaint with jardiance . No yeast infection. She does not believe is working good she is not urinating as much she has pectus she would. This goes back again to lack of having her glucometer which I discussed again with her. Fructosamine and hemoglobin HgbA1c in the future. Assessment & Plan (12/08/2017 9:09 AM NETWORK ANALYST): Patient's diabetes not improved recent hemoglobin HgbA1c is 8.8. At this time add a SGOT-2 jardiance 10 mg per day. Samples given. Patient is advised she may end up on an injection the that the GL P 1 or insulin. Encouraged to stop smoking exercise patient admits she does not take dieting seriously. With re-evaluate next visit. A alternative would be give her combination of DPP 4/SGOT -2 medication glyxambi. Samples of jardiance of been given to this patient. Assessment & Plan (11/03/2017 3:20 PM NETWORK ANALYST): Patient's diabetes not controlled hemoglobin HgbA1c was 8.3. Patient has been on glimepiride because of and metformin. Plans recheck hemoglobin HgbA1c today and B12 level since she is having neuropathy type symptoms. Patient is advised she can anticipate medication changes was results of return. Patient's body mass is 38.25 my opinion she would be a great candidate for Victoza. Will probably make change in the new insurance changes in November. She has a follow-up appointment on November 22. Assessment & Plan (10/13/2017 1:23 PM NETWORK ANALYST): Check hemoglobin HgbA1c. Acquired hypothyroidism 07/01/2017 Assessment & Plan (03/05/2022 12:31 PM CDT): Update TSH level today Assessment & Plan (08/21/2021 2:24 PM CDT): Diabetes has been well controlled between 6.2 in 6.8 for the past several visits. Will update HgbA1c today. Patient's reminded she needs to get an eye exam annually. Assessment & Plan (06/29/2020 4:13 PM CDT): Update patient's TSH level previous levels have been very good Assessment & Plan (04/02/2019 7:41 PM CDT): TSH level in therapeutic range no change in therapy. Update TSH level lab requested Assessment & Plan (10/13/2017 1:23 PM NETWORK ANALYST): Check TSH level today. Mild persistent asthma 07/01/2017 Assessment & Plan (10/31/2023 4:27 PM NETWORK ANALYST): Asthma very stable rarely needs albuterol Assessment & Plan (08/21/2021 2:29 PM CDT): Patient asthma is very stable occasionally needs albuterol. Assessment & Plan (07/31/2019 5:57 PM CDT): Patient's asthma is very stable at this time no change in therapy Assessment & Plan (11/03/2017 3:15 PM NETWORK ANALYST): Patient describes wheezing shortness of breath especially at night. Albuterol HFA and Breo will be continued. Peripheral artery disease (CMS/HCC) 07/01/2017 Assessment & Plan (06/29/2020 4:13 PM CDT): Patient having no problems with walking leg pain she of remains on Coumadin no change in therapy Assessment & Plan (01/14/2020 4:20 PM NETWORK ANALYST): History of recurring DVT she is maintain on Coumadin therapy no changes. Patient is compliant in getting her pro times. Assessment & Plan (01/28/2019 12:49 PM CDT): Patient has had no further symptoms of P 80 at this time. Assessment & Plan (01/01/2018 4:08 PM NETWORK ANALYST): The schedule for a stent in her right leg next week. Referred her to the intervention header boss because of persistent PAD symptoms. Turner In re-emphasized the story I have been giving her regarding nicotine is extremely important that she stop smoking. Patient mid she likes smoking. Is considering the Chantix. Assessment & Plan (12/01/2017 10:33 AM NETWORK ANALYST): Patient's intermittent claudication continues at this point abdomen re-evaluate her abdomen regarding possibility of aortic aneurysm before proceeding with any MRIs a MRA images of her lower extremities. Assessment & Plan (11/03/2017 3:13 PM NETWORK ANALYST): Patient is a abnormal YEYO 0.7 index is her results. Patient will need a MRA of her legs/lower extremities patient once he get her back taking care 1st therefore MRI of her back has been ordered. Will discuss peripheral vascular disease next visit. Patient strongly advised to stop smoking is explain to her in layman's terms the correlation between smoking and her circulation and leg in a blood vessel issues. Assessment & Plan (10/13/2017 1:25 PM NETWORK ANALYST): Mild intermittent claudication of arterial Doppler/YEYO needs to be updated. Re-emphasized need to discontinue smoking. Nicotine dependence, uncomplicated 07/01/2017 Assessment & Plan (01/26/2025 9:00 AM CDT): Patient is advised for low-dose CT scan regarding lung cancer because of nicotine addiction. Patient is noncommittal on if she wants to have this done. November 27, 2024 visit Assessment & Plan (09/02/2022 6:30 PM CDT): Patient is now down to a pack of cigarettes per day she was previously 2 packs 6 months ago. I discussed with her continue to titrate down . Set a goal to smoke less than half a pack of cigarettes per day by Sol. Assessment & Plan (06/16/2022 1:45 PM CDT): Patient is a 2 pack-a-day smoker recent hospital placed on nicotine patch she tolerated. Patient is requesting nicotine patch. Advised her for success she is best off would nicotine patch plus nicotine gum for intense craving in vent they occur. She is advised that this may not be paid for by insurance. Assessment & Plan (03/05/2022 12:29 PM CDT): Low-dose CT lung cancer screening. Is smoking greater than 40 pack years. Assessment & Plan (12/01/2017 10:31 AM NETWORK ANALYST): Importance of nicotine discussed again patient will consider Chantix. Assessment & Plan (11/03/2017 3:17 PM NETWORK ANALYST): Patient advised discontinue smoking consider medications sister was smoking Chantix, Wellbutrin be considered. Patient admits she does not want to stop smoking. She did appear concern will discuss the effects of smoking on his circulation leg problems. Advisable discontinue smoking she if is going to need back surgery possibly in the future Resolved Problems Problem Noted Date Diagnosed Date Resolved Date Type 2 diabetes mellitus wit h chronic kidney disease 10/31/2023 10/31/2023 Acute respiratory failure with hypoxia 06/06/2022 06/06/2022 Aspiration pneumonia 06/06/2022 022 Tinea cruris 08/01/2021 08/21/2021 Assessment & Plan (08/01/2021 2:12 PM CDT): She will use nystatin powder to this area 2-3x per day for at least 6 weeks for best outcome. F/U with Dr. Coello on her upcoming appt on 08/21/21. Intertrigo 08/01/2021 06/06/2022 Assessment & Plan (01/13/2022 2:01 PM NETWORK ANALYST): Patient presents with red, moist recurrent rash in the bilateral groin folds that is consistent with intertrigo. She had used nystatin powder in the past which helped. We will refill. She was encouraged to keep skin clean and dry. She will call should symptoms worsen or persist Assessment & Plan (08/01/2021 2:13 PM CDT): Nystatin powder to panniculus 2-3x per day for at least 6 weeks for best outcome. F/U with Dr. Coello on 08/21/21. Positive colorectal cancer s creening using Cologuard test 09/23/2020 02/13/2021 Overview (09/23/2020): Added automatically from request for surgery [id number] Bilateral leg edema 07/31/2019 06/25/20 20 Assessment & Plan (07/31/2019 12:10 PM CDT): Patient's edema over legs right worse than left 2+ with the tibia and right ankle significantly swollen left foot leg is 1+.. Plans rest my 20 mg once daily p.r.n. For excessive swelling. Fatigue 03/28/2019 01/14/2020 Former smoker 07/15/2018 03/28/2019 Overview (07/15/2018): Patient's stop smoking march 1018. Wound infection after surgery 06/14/2018 03/28/2019 Postoperative wound dehiscen ce with possible infection 05/13/2018 01/28/2019 Overview (05/13/2018): Assessment & Plan (05/23/2018 11:36 AM CDT): S/P Left hemicraniotomy for subdural hematoma evacuation with titanitum mesh on 03/18 Returned with wound dehischence on 05/12 and found to have exposed HW/mesh Was taken to the OR for debridement 05/13 and removal of the mesh. No purulence observed. Tissue and mesh cxs grew Serratia (S: cefe, cipro, gent, ratna, Bactrim) - recommend continuing cefepime, but change dose to 2gms IV q24h OR 1gm IV q12h(based on crcl 30-60). Will treat as OM with a total duration of 6 weeks from 05/13. Given removal of mesh, she will not need PO suppression - obtain weekly CBC and CMP while on IV atbs; ESR and CRP in 3 weeks - ID ff up in 2 weeks Traumatic subdural hematoma with loss of consciousness 05/11/2018 01/14/2020 Draining postoperative wound 05/11/2018 03/28/2019 Overview (05/12/2018): Added automatically from request for surgery [id number] Cognitive deficits 05/04/2018 0 Assessment & Plan (07/31/2019 5:55 PM CDT): Patient's subdural hematoma approximate 2 years ago. At that time she shows signs of cognitive decline. Today's mini-mental exam score was 30 which is perfectly normal Asymptomatic carotid artery stenosis 04/26/2018 02/14/2021 DM (diabetes mellitus) 04/26/201807/15 Obesity 04/26/2018 02/23/2023 Overview (04/26/2018): Overview: morbid Tobacco abuse 04/26/2018 07/15/2018 Acute venous embolism and th rombosis of deep vessels of proximal lower extremity (CMS/HCC) [I82.4Y9] 12/31/2017 02/14/2021 Chronic midline low back pain with sciatica 11/03/2017 01/14/2020 Assessment & Plan (12/01/2017 10:35 AM NETWORK ANALYST): MRI of patient's back shows minimal disc protrusion. Lumbar spine. Assessment & Plan (11/03/2017 3:08 PM NETWORK ANALYST): Patient's because concern is back pain. Describes cramping very painful after standing less approximate 10 minutes cannot walk very far because of back pain patient also has intermittent claudication symptoms. She has some relief with tilting forward. She bends over back pain increases considerably. His sciatica symptoms. MRI of her back is requested. Dyspnea 11/03/2017 01/14/2020 Assessment & Plan (01/01/2018 4:12 PM NETWORK ANALYST): Patient's opinion that her shortness of breath is improved. No objective evidence of this. Will readdress on next visit. Assessment & Plan (12/01/2017 10:32 AM NETWORK ANALYST): Patient's echocardiogram returned normal. Etiology of her shortness of breath may be underlying asthma. Deconditioning and possible overweight. Given recommend weight loss. Continue albuterol HFA. Assessment & Plan (11/03/2017 3:16 PM NETWORK ANALYST): Patient has dyspnea is a chronic condition he is a heavy smoker. She gets out of breath walking her peak flow was 83 percent of expected. Going to get a echocardiogram evaluate possible underlying CHF as a cause of her dyspnea chest x-ray is requested. Again readdress smoking. Abdominal aortic aneurysm (A AA) 3.0 cm to 5.0 cm in diameter in female 11/01/2017 12/01/2017 Assessment & Plan (12/01/2017 10:34 AM NETWORK ANALYST): Get an ultrasound of her abdomen recent MR for back suggest she has aortic aneurysm. Assessment & Plan (11/03/2017 3:11 PM NETWORK ANALYST): Patient has an abdominal aortic aneurysm 3.5 centimeters in diameter 2 years ago. Will do a repeat ultrasound her abdomen in the next several months. However she is going to need MRA her lower extremities this may sure aneurysm on that test procedure. Patient so advised Chronic rhinitis 11/01/2017 08/21/2021 Assessment & Plan (11/03/2017 3:10 PM NETWORK ANALYST): Patient's chronic rhinitis constant postnasal drip and nasal blockage sensation. Patient is a heavy smoker. At this time recommended nasal rinse and discontinue smoking. Lymphadenopathy 08/12/2016 07/31/2019 Deep vein thrombosis (DVT) 03/31/2014 0 02/14/2021 Overview (02/17/2017): Deep vein thrombosis (DVT) Assessment & Plan (01/28/2019 12:45 PM CDT): Patient continues on Coumadin therapy without any complications. She denies any leg pain at this time. Assessment & Plan (10/13/2017 1:24 PM NETWORK ANALYST): Patient on chronic anticoagulation therapy of Coumadin. She is compliant in getting a pro times done. Acute cystitis without hematuria 06/16/2022 Immunizations Immunization Administration Dates Next Due Influenza, Quad, Adjuvantate d, Intramuscular 10/29/2023 Influenza, Quadrivalent, Hig h Dose, Preservative Free, Intrr 09/02/2022,08/21/2021,08/23/2020,08/23 Influenza, Trivalent, Adjuva nted, Intramuscular 09/08/2019 Influenza, Trivalent, High D ose, Split, Preservative Free, Intramuscular 11/27/2024,09/15/2016,08/20/2015,09/21 Influenza, Trivalent, IM (MDV) 09/10/2015 Influenza, Trivalent, Preser vative Free, Intramuscular 12/08/2012 Influenza, Unspecified 09/08/2019,11/01/2017 Moderna SARS-CoV-2 Monovalen t Vaccination (12+ YRS) 02/04/2021,01/07/2021 Moderna Sars-cov-2 Bivalent Vaccine 50 Mcg/0.5 mL (12+ YRS)-Blue/Gonzales 08/24/2022 Pneumococcal Conjugate 7-Valent 03/29/2013 Pneumococcal Conjugate PCV 13 09/15/2016 Pneumococcal Polysaccharide PPV23 03/28/2019 RSV Vaccine, Pref, Recombina nt, Subunit, Adjuvanted, PF, IM (Arexvy) 10/29/2023 Td, adsorbed 05/16/2010 ZOSTER Recombinant 08/02/2019,05/31/2019 Social History Tobacco Use Types Packs/Day Years Used Date Smoking Tobacco: Every Day Cigarettes 1.5 57 Started: 05/11/1968 Smokeless Tobacco: Former Tobacco Cessation:Ready to Q uit: Not Asked; Counseling Given: Not Answered Alcohol Use Standard Drinks/Week Comments No 0 [...] on file Legal Sex Female 12:03 PM NETWORK ANALYST Gender Identity Not on file Sexual Orientation Not on file Occupation Industry Job Start Date Job End Date retired Not on file Not on file Not on file Last Filed Vital Signs Vital Sign Reading Time Taken Comments Blood Pressure 151/96 05/16/2025 10:40 AM CDT Pulse 69 05/16/2025 10:40 AM CDT Temperature 36.2 C (97.1 F) 05/16/2025 10:40 AM CDT Respiratory Rate 20 04/16/2025 10:30 AM CDT Oxygen Saturation 91% 05/16/2025 10:40 AM CDT Inhaled Oxygen Concentration - - Weight 91.7 kg (202 lb 3.2 oz) 05/16/2025 10:40 AM CDT Height 165.1 cm (5' 5) 05/16/2025 10:40 AM CDT Body Mass Index 33.65 05/16/2025 10:40 AM CDT Plan of Treatment Upcoming Encounters Date Type Department Care Team (Late st Contact Info) Description 05/29/2025 10:30 AM CDT Hospital Encounter [facility] Operating Room [address] [place] [address] Tommy Ford MD [address] [facility] [facility] [address] [place] [address] 05/29/2025 10:30 AM CDT - 05/29/2025 12:10 PM CDT Surgery [facility] Operating Room [address] [place] [address] Tommy Ford MD [address] [facility] [facility] [address] [place] [address] LEFT LUMPECTOMY WITH WIRE LOCALIZATION Scheduled Procedures Name Priority Associated Diagnoses Date/Ti me LUMPECTOMY Ductal carcinoma in situ (DCIS) of left breast 05/29/2025 10:30 AM CDT Medical Devices Implanted Type Area Chef German Device Identifier Shelf Expiration Date Model / Serial / Lot [employer] Inc Marker Tissue Side Deploy Applicator U Shaped Radiopaque Clip Titanium Collagen Revolve 10ga [id number] - [id number] - [id number] Implanted:Qty: 1 on 04/16/2025 by Ilan Duncan MD at [facility] Breast Left: Breast [employer] 04/11/2026 [id number] / [id number] Description:Implanted Left B reast Outer Mid Stent Vascular Zilver Ptx L60 Mm L125 Cm Od6 Mm Peripheral Drug Elute Otw Delivery System Accepts .035 In Guidewire 6 Fr Sheath - [id number] Implanted:Qty: 1 on 03/10/2018 by Santana Martinez MD at [facility] Phar[employer] Inc 07/15/2019 [id number] / / [id number] Stent Vascular Smart Control Micromarker Nitinol L60 Mm L120 Cm Od8 Mm Iliac Self Expand Micromesh Segment Delivery Handle Sterile Latex Free Disposable Accepts .035 In Guidewire 6 Fr Sheath 8 Fr Guide Catheter 6-7 Mm Vessel - [id number] Implanted:Qty: 1 on 03/10/2018 by Santana Martinez MD at [facility] 05/14/2019 [id number] / / [id number] Garfield Craniomaxillofacia l [id number] Duramatrix-Onlay 5x4in Conformable Resorbable Cranium Patch Dural - [id number] Implanted:Qty: 1 on 05/13/2018 by Yehuda Odonnell MD PhD at [facility] Left: Brain Garfield Craniomaxillofacial [id number] 10/14/2020 [id number] / / [id number] Procedures Procedure Name Priority Date/Time Associated Diagnosis Comments PROTIME-INR Routine 05/12/2025 PROTIME-INR Routine 04/29/2025 STEREOTACTIC BREAST BIOPSY LEFT Schedule Routine, Read Routine (OP Routine) 04/16/2025 12:04 PM CDT Abnormal mammogram SURGICAL PATHOLOGY Routine 04/16/2025 11:25 AM CDT Abnormal mammogram APTT Routine 04/16/2025 10:15 AM CDT PROTIME-INR STAT 04/16/2025 10:15 AM CDT PROTIME-INR Routine 04/07/2025 US BREAST LEFT LIMITED Schedule SANCHEZ, Read SANCHEZ (Appt Today, Awaiting Results) 03/26/2025 9:54 AM CDT Abnormal mammogram DIAGNOSTIC MAMMOGRAM BILATERAL W MARKOS Schedule SANCHEZ, Read SANCHEZ (Appt Today, Awaiting Results) 03/26/2025 8:43 AM CDT Abnormal mammogram PROTIME-INR Routine 03/17/2025 PROTIME-INR Routine 02/26/2025 EGFR Routine 11/27/2024 1:26 PM NETWORK ANALYST Type 2 diabetes mellitus without complication, without long-term current use of insulin (HCC) Hypertension, essential HEMOGLOBIN A1C Routine 11/27/2024 1:26 PM NETWORK ANALYST Type 2 diabetes mellitus without complication, without long-term current use of insulin (HCC) LIPID PANEL Routine 11/27/2024 1:26 PM NETWORK ANALYST Mixed 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 (HCC) ALBUMIN CREATININE RATIO, URINE Routine 11/27/2024 1:26 PM NETWORK ANALYST Type 2 diabetes mellitus without complication, without long-term current use of insulin (HCC) Hypertension, essential DEXA AXIAL SKELETON BONE DENSITY 1 OR MORE SITES Schedule Routine, Read Routine (OP Routine) 03/02/2023 11:[address] LUNG CANCER SCREENING Schedule Routine, Read Routine (OP Routine) 03/31/2022 11:55 AM CDT Cigarette nicotine dependence without complication COLONOSCOPY 10/29/2020 11:52 AM NETWORK ANALYST HM DIABETES EYE EXAM Routine 05/21/2019 HEPATITIS C ANTIBODY Routine Gen Lab 03/18/2018 3:40 PM CDT from Last 3 Months or Most Recently Relevant to Health Maintenance Results * (ABNORMAL) Protime-INR (05/12/2025) INR 3.10(A) 0.90 - 1.10 EXTERNAL LAB Blood Narrative Resulting Agency Comment [facility] INR us Nick Coello MD LAB BLOOD ORDERABLES Final Result EXTERNAL LAB * (ABNORMAL) Protime-INR (04/29/2025) INR 2.00(A) 0.90 - 1.10 EXTERNAL LAB Blood Narrative Resulting Agency Comment [facility] INR us Nick Coello MD LAB BLOOD ORDERABLES Final Result EXTERNAL LAB * Stereotactic Breast Biopsy Left (04/16/2025 12:04 PM CDT) Anatomical Region Laterality Modality Breast Left Mammography 04/16/2025 12:1 2 PM CDT Addenda Addendum by Ilan Duncan MD on 04/20/2025 8:18 AM CDT 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 Referral to surgery and oncology is recommended. Dr. Coello was notified of the biopsy results and recommended follow-up by Rick Alvarenga, nuclear cardiology technologist, via Kik message on 04/18/2025. Electronically signed by: Ilan Duncan M.D. Impressions 04/16/2025 12:12 PM CDT Successful vacuum-assisted stereotactic guided needle biopsy of the LEFT breast. Pathology is pending. ASSESSMENT: Post Procedure Mammograms for Marker Placement Electronically signed by: Ilan Duncan M.D. Narrative 04/16/2025 12:12 PM CDT EXAMINATION: LEFT STEREOTACTIC BREAST VACUUM-ASSISTED CORE BIOPSY UTILIZING TOMOSYNTHESIS AND STEREOTACTIC GUIDANCE, PLACEMENT OF A BIOPSY SITE TISSUE MARKER CLIP, AND LEFT FULL FIELD DIGITAL MAMMOGRAM WITH DIGITAL BREAST TOMOSYNTHESIS HISTORY: Left breast suspicious calcifications. Stereotactic guided needle biopsy is requested to evaluate for malignancy. COMPARISON: 03/26/2025 BREAST PARENCHYMAL COMPOSITION: The breasts are heterogeneously dense, which may obscure small masses. PROCEDURE AND FINDINGS: The risks and potential benefits of the procedures were discussed with the patient and written informed consent was obtained. After a time-out procedure, the patient was placed in the supine position on the biopsy unit. The area of interest (grouped calcifications in the central outer left breast) was localized and targeted utilizing digital imaging with tomosynthesis and stereotaxis. After sterile preparation of the skin, 1% lidocaine was utilized for local anesthesia. A small skin incision was made with a #11 scalpel blade and a 10-gauge mammotome vacuum-assisted biopsy needle was advanced to the area of interest from the lateral approach utilizing stereotactic guidance. A total of 6 tissue cores were then obtained; these were submitted to surgical pathology in formalin for histologic analysis. Multiple calcifications are present within the specimen radiograph. A U-shaped tissue marker clip was placed at the biopsy site. The needle was removed, hemostasis was achieved, and Dermabond was applied. There was no evidence of significant immediate complication. The patient was given verbal as well as written post procedural instructions prior to release from the department. A two-view LEFT digital mammogram, including digital breast tomosynthesis, post procedure demonstrates that the tissue marker clip is in the expected position. us Nick Coello MD IM MAMMO PROCEDURES Edite d Result - Final * Surgical pathology (04/16/2025 11:25 AM CDT) Tissue (Breast biopsy, needle core) 04/16/2025 11:13 AM CDT Narrative PATHOLOGY [facility] - 04/18/2025 10:29 AM CDT EPIC results best viewed via link to PDF [facility] Department of Pathology [address] [place] [address] Note to Patients: This report may contain a detailed description of human tissue sent by a health care provider to the laboratory for pathologic evaluation. The content of this report is essential for diagnosis and may provide important critical findings. This information may be unfamiliar to patients to review without a medical professional present. It is advised that the patient review this report in the presence of a health care provider who can answer questions and explain the details. Final Report with Addendum Patient Name: ROEL LUND Address: [address] [place] [address] Gender: F : 1950 (Age: 74) Service: Location: Hospital #: [id number] Patient Type: [facility] ANCILLARY Taken: 04/16/2025 Received: 04/16/2025 Accessioned: 04/16/2025 Reported: 04/18/2025 Physician(s):Ilan Duncan MD Diagnosis: A. Left breast, outer mid calcifications, core biopsies x6 DCIS, high nuclear grade, comedo and clinging patterns Associated microcalcifications present; radiographically concordant BCPP by IHC pending Quin Stratton M.D. Report Electronically Reviewed and Signed Out By Quin Stratton M.D. 04/18/2025 10:29:32 Procedure/Addenda: Breast Cancer Prognostic Panel Interpretation Breast Biomarker Reporting Template Test(s) Performed: ER, PgR Estrogen Receptor (ER) Status: Positive Percentage of Cells with Nuclear Positivity: 81-90% Average Intensity of Staining: Strong Test Type: Laboratory-developed test Primary Antibody: SP1 Scoring System: Blanquita Proportion Score: 5 Intensity Score: 3 Total Blanquita Score: 8 Progesterone Receptor (PgR) Status: Positive Percentage of Cells with Nuclear Positivity: 11-20% Average Intensity of Staining: Moderate Test Type: Laboratory-developed test Primary Antibody: 1E2 Scoring System: Blanquita Proportion Score: 3 Intensity Score: 2 Total Blanquita Score: 5 Cold Ischemia and Fixation Times: Meet requirements specified in latest version of the ASCO / CAP Guidelines Testing Performed on Block Number(s): A5 METHODS Fixative: Formalin CAP VERSION: Breast Biomarker Reporting 1.5.0.1 Vera Ramirez M.D.Report Electronically Reviewed and Signed Out By Vera Ramirez M.D. 04/19/2025 18:37:22 Specimen(s) Received: A: Stereotactic breast biopsy left oputer mid, cores x 6 for microcalcifications in slots 1, 4, 5 and 6 Microscopic Description: The specimen radiograph is reviewed electronically. Microscopic examination corroborates the diagnosis. DCIS is present in many core biopsy specimens with variably prominent microcalcifications including rather substantive calcifications in blocks 5 and 6. IHC stains AE1/AE3 and SMM-HWC highlights DCIS without demonstrating invasive carcinoma. Appropriate controls are also reviewed. BCPP will be performed with results to follow in an addendum. Clinical History: Abnormal mammogram. Stereotactic breast biopsy left outer mid. Gross Description: The specimen is submitted in a single formalin filled container labeled [facility] and stereotactic breast biopsy left outer mid; cores x6. It is a divided stereotactic device. All submitted. Compartment 1 holds 1 red fibrofatty core, 1.5 x 0.3 cm, embedded as A1. Compartment 2 holds 1 red fibrofatty core, 3.2 cm in length by 0.4 cm in diameter, embedded as A2. Compartment 3 holds 1 yellow-red fibrofatty core, 2.9 cm in length by 0.3 cm in diameter, embedded as A3. Compartment 4 holds 1 alba-red fibrofatty core, 1.9 x 0.3 cm, embedded as A4. Compartment 5 holds 1 red fibrofatty core, 1.9 cm in length by 0.5 cm in diameter, embedded as A5. Compartment 6 colds 1 alba-red fibrofatty core, 2.4 cm in length by 0.4 cm in diameter, embedded as A6. Removed from patient on 04/16/2025 and placed in formalin at 10 05, 04/16/2025, removed from formalin 04/16/2025. Formalin fixation times are in compliance with ASCO/CAP guidelines. Becky Funes/Vera Ramirze M.D. REPORT IMAGES AND SCANNED DOCUMENTS, IF INCLUDED, ONLY VIEWABLE IN PDF VERSION OF REPORT The performance characteristics of some immunohistochemical stains, fluorescence in-situ hybridization tests and immunophenotyping by flow cytometry cited in this report (if any) were determined by the Surgical Pathology Department at [facility] as part of an ongoing quality assurance advisor program and in compliance with federally mandated regulations drawn from the Clinical Laboratory Improvement Act of 1988 (CLIA '88). Some of these tests rely on the use of analyte specific reagents and are subject to specific labeling requirements by the US Food and Drug Administration. Such diagnostic tests may only be performed in a facility that is certified by the Department of Health and Human Services as a high complexity laboratory under CLIA '88. The FDA has determined that such clearance or approval is not necessary. This test is used for clinical purposes. It should not be regarded as investigational or for research. Nevertheless, federal rules concerning the medical use of analyte specific reagents require that the following disclaimer be attached to the report: This test was developed and its performance characteristics determined by the Surgical Pathology Department [facility]. It has not been cleared or approved by the U. S. Food and Drug Administration. Note for decalcified specimens: This assay has not been validated on decalcified tissues. Results should be interpreted with caution given the possibility of false negativity on decalcified specimens Nick Coello MD LAB PATHOLOGY ORDERABLES F inal Result Performing Organization Address [facility] Co de Phone Number PATHOLOGY [facility] ([place]) 1 [place] [address] * aPTT (04/16/2025 10:15 AM CDT) aPTT 33 28 - 38 sec [facility] ([place]) Comment: Interpretive Data Heparin therapeutic range: 66.0 - 100.0 seconds. Range based on correlation with therapeutic heparin activity range of 0.3 - 0.7 Units/mL. Current interpretive data was last revised on 2023. Blood 04/16/2025 10:1 5 AM CDT 04/16/2025 10:18 AM CDT Nick Coello MD LAB BLOOD ORDERABLES Final Result Performing Organization Address [facility] de Phone Number [facility] ([place]) 1 [facility] Department [place] [address] * Protime-INR (04/16/2025 10:15 AM CDT) PT 11.6 9.7 - 13.0 sec RACHELLE [facility] ([place]) INR 1.07 0.90 - 1.20 [facility] ([place] Comment: Interpretive data Oral anticoagulant therapeutic ranges: Venous thromboembolism prophylaxis or treatment: 2.0-3.0 CARDIOLOGY Standard range: 2.0-3.0 High-intensity range: 2.5-3.5 Refer to indication-specific guidelines for appropriate target ranges for prosthetic heart valve replacement. Current interpretive data was last revised on 2019. Blood 04/16/2025 10:1 5 AM CDT 04/16/2025 10:18 AM CDT Nick Coello MD LAB BLOOD ORDERABLES Final Result RACHELLE [facility] ([place]) 1 [facility] Department [place] [address] * (ABNORMAL) Protime-INR (04/07/2025) INR 3.00(A) 0.90 - 1.10 EXTERNAL LAB Blood Narrative Resulting Agency Comment [facility] INR us Nick Coello MD LAB BLOOD ORDERABLES Final Result EXTERNAL LAB * US Breast Left Limited (03/26/2025 9:54 AM CDT) Anatomical Region Laterality Modality Breast Left Ultrasound 03/26/2025 12:3 3 PM CDT Impressions 03/26/2025 12:33 PM CDT Grouped microcalcifications in the outer mid left breast are suspicious for malignancy. OVERALL FINAL ASSESSMENT: SUSPICIOUS. BI-RADS Category 4B: Moderate suspicion for malignancy. RECOMMENDATION: Stereotactic core biopsy of left breast grouped microcalcifications remains the recommended course of action. Electronically signed by: Halle Rose M.D. Narrative 03/26/2025 12:33 PM CDT EXAMINATION: BILATERAL DIGITAL DIAGNOSTIC MAMMOGRAM INCLUDING CAD AND BILATERAL DIGITAL BREAST TOMOSYNTHESIS; LEFT BREAST SONOGRAM HISTORY: Follow-up of suspicious grouped microcalcifications in the left breast, annual study COMPARISON: 03/31/2024, 03/24/2024, 03/09/2023, 01/27/2022 TECHNIQUE: Full field digital mammographic views of BOTH breasts were performed, including computer aided detection (CAD) and BILATERAL digital breast tomosynthesis (DBT). Magnification views of the left breast were performed as well as a full field 90 degree view. Directed ultrasound evaluation of the LEFT breast was performed. BREAST PARENCHYMAL COMPOSITION: The breasts are heterogeneously dense, which may obscure small masses. MAMMOGRAM FINDINGS: Again identified in the outer mid left breast are grouped microcalcifications appearing heterogeneous in morphology. A definite underlying mass is not appreciated. There are no other new dominant densities or suspicious microcalcifications bilaterally. SONOGRAM FINDINGS: Targeted left breast ultrasound of the grouped microcalcifications was performed to determine if an underlying lesion is present. No sonographic correlate for the suspicious microcalcifications is appreciated. Nick Coello MD [facility] MAMMO PROCEDURES Final Result * (ABNORMAL) Diagnostic Mammogram Bilateral W Markos (03/26/2025 8:43 AM CDT) Anatomical Region Laterality Modality Breast Bilateral Mammography 03/26/2025 12:3 3 PM CDT Impressions 03/26/2025 12:33 PM CDT Grouped microcalcifications in the outer mid left breast are suspicious for malignancy. OVERALL FINAL ASSESSMENT: SUSPICIOUS. BI-RADS Category 4B: Moderate suspicion for malignancy. RECOMMENDATION: Stereotactic core biopsy of left breast grouped microcalcifications remains the recommended course of action. Electronically signed by: Halle Rose M.D. Narrative 03/26/2025 12:33 PM CDT EXAMINATION: BILATERAL DIGITAL DIAGNOSTIC MAMMOGRAM INCLUDING CAD AND BILATERAL DIGITAL BREAST TOMOSYNTHESIS; LEFT BREAST SONOGRAM HISTORY: Follow-up of suspicious grouped microcalcifications in the left breast, annual study COMPARISON: 03/31/2024, 03/24/2024, 03/09/2023, 01/27/2022 TECHNIQUE: Full field digital mammographic views of BOTH breasts were performed, including computer aided detection (CAD) and BILATERAL digital breast tomosynthesis (DBT). Magnification views of the left breast were performed as well as a full field 90 degree view. Directed ultrasound evaluation of the LEFT breast was performed. BREAST PARENCHYMAL COMPOSITION: The breasts are heterogeneously dense, which may obscure small masses. MAMMOGRAM FINDINGS: Again identified in the outer mid left breast are grouped microcalcifications appearing heterogeneous in morphology. A definite underlying mass is not appreciated. There are no other new dominant densities or suspicious microcalcifications bilaterally. SONOGRAM FINDINGS: Targeted left breast ultrasound of the grouped microcalcifications was performed to determine if an underlying lesion is present. No sonographic correlate for the suspicious microcalcifications is appreciated. Nick Coello MD [facility] MAMMO PROCEDURES Final Result * (ABNORMAL) Protime-INR (03/17/2025) INR 3.10(A) 0.90 - 1.10 EXTERNAL LAB Blood Narrative Resulting Agency Comment [facility] INR Nick Coello MD LAB BLOOD ORDERABLES Final Result EXTERNAL LAB * (ABNORMAL) Protime-INR (02/26/2025) INR 2.80(A) 0.90 - 1.10 EXTERNAL LAB Blood Narrative Resulting Agency Comment [facility] INR Nick Coello MD LAB BLOOD ORDERABLES Final Result Performing Organization Address City/[facility]/ZIP Co de Phone Number EXTERNAL LAB * (ABNORMAL) eGFR (11/27/2024 1:26 PM NETWORK ANALYST) eGFR 34(L) >=60 mL/min/1. 73 m2 Comment: Interpretive Data Reference Interval Normal >/= 90 mL/min/1.73m2 Mildly decreased* 60 - 89 mL/min/1.73m2 Mildly to moderately decreased 45 - 59 mL/min/1.73m2 Moderately to severely decreased 30 - 44 mL/min/1.73m2 Severely decreased 15 - 29 mL/min/1.73m2 Kidney Failure < 15 mL/min/1.73m2 *Relative to young adult level Estimated glomerular filtration rate is determined by the 2020 CKD-EPI equation recommended by the National Kidney Foundation (A Unifying Approach to GFR Estimation: Recommendations of the NKF-ASK Task Force on Reassessing the Inclusion of Race in Diagnosing Kidney Disease, JASN 2020). The CKD-EPI equation should not be used for patients with unstable renal function and has not been validated in children and those over 70. Current interpretive data was last reviewed 2021. Testing performed by: [facility], [address] [place] [address], [place]., [address] Blood 11/27/2024 1:26 PM NETWORK ANALYST 11/27/2024 9:06 PM NETWORK ANALYST Nick Coello MD LAB BLOOD ORDERABLES Final Result Performing Organization Address City/State/[facility] Co de Phone Number RACHELLE [address] [facility] Department [place] [address] * (ABNORMAL) Albumin Creatinine Ratio, Urine (11/27/2024 1:26 PM NETWORK ANALYST) Pathologist [facility] [place] Albumin Ur 1,876.6 mg/L Comment: Interpretive Data No reference range established. Current interpretive data was last revised 2019. Testing performed by: [address] [address] Creatinine Ur 157.9 mg/dL [facility] Comment: Interpretive Data No reference range established. Current interpretive data was last revised 2019. Testing performed by: [address] [address] Albumin Creatinine Ratio, Ur 1,188(H) 1 - 29 mg/g [facility] Comment:Testing performed by : [address] [address] Urine 11/27/2024 1:26 PM NETWORK ANALYST 11/27/2024 8:50 PM NETWORK ANALYST Nick Coello MD LAB URINE ORDERABLES Final Result Performing Organization Address [facility] Co de Phone Number RACHELLE [address] [facility] [place] [place] [address] * (ABNORMAL) Hemoglobin A1c (11/27/2024 1:26 PM NETWORK ANALYST) Pathologist [facility] [place] Hgb A1C 6.6(H) 4.0 - 5.6 % Comment:Testing performed by : [address] [address] Estimated Average Glucose 143 mg/dL RACHELLE Comment: The ADA recommends reporting an estimated Average Glucose (eAG) with all Hemoglobin A1c results using the equation derived from a study of 507 normal and diabetic adults. Minority populations were underrepresented and children were not included. (Diabetes Care 31:4194-6724, 2008). The eAG is not equivalent to a fasting glucose. Testing performed by: [address] [address] Blood 11/27/2024 1:26 PM NETWORK ANALYST 11/27/2024 8:50 PM NETWORK ANALYST Nick Coello MD LAB BLOOD ORDERABLES Final Result R[place] [address] [facility] Department [place] [address] * Lipid panel (11/27/2024 1:26 PM NETWORK ANALYST) Cholesterol 152 30 - 199 mg/dL Comment: Interpretive Data Ages < or = 19 years Acceptable: <170 mg/dL Borderline high: 170-199 mg/dL High: >or= 200 mg/dL Ages > or = 20 years Desirable: <200 mg/dL Borderline high: 200-239 mg/dL High: >or= 240 mg/dL Literature References: 1. Expert Panel on Integrated Guidelines for Cardiovascular Health and Risk Reduction in Children and Adolescents. Pediatrics 2011;128:S213 2. NCEP Expert Panel. Circulation 2004;110:227 Current Interpretive Data was last revised on 2018. Testing performed by: [address] [address] Triglycerides 142 <=149 mg/dL RACHELLE Comment: Interpretive Data Ages < or = 9 years Acceptable: <75 mg/dL Borderline high: 75-99 mg/dL High: >or= 100 mg/dL Ages 10 to 20 years Acceptable: <90 mg/dL Borderline high: 90-129 mg/dL High: >or= 130 mg/dL Ages > or = 20 years Desirable: <150 mg/dL Borderline high: 150-199 mg/dL High: 200-499 mg/dL Very high: >or= 499 mg/dL Literature References: 1. Expert Panel on Integrated Guidelines for Cardiovascular Health and Risk Reduction in Children and Adolescents. Pediatrics 2011;128:S213 2. NCEP Expert Panel. Circulation 2004;110:227 Current Interpretive Data was last revised on 2018. Testing performed by: [facility], [address] [place] [address]., [address] HDL 45 >=40 mg/dL RACHELLE Comment: Interpretive Data Ages < or = 19 years Acceptable: >45 mg/dL Borderline low: 40-45 mg/dL Low: <40 mg/dL Ages > or = 20 years Desirable: >or= 60 mg/dL Low: <40 mg/dL Literature References: 1. Expert Panel on Integrated Guidelines for Cardiovascular Health and Risk Reduction in Children and Adolescents. Pediatrics 2011;128:S213 2. NCEP Expert Panel. Circulation 2004;110:227 Current Interpretive Data was last revised on 2018. Testing performed by: [address] [address] LDL, calculated 82 <=129 mg/dL RACHELLE [place] Comment: Interpretive Data Ages < or = 19 years Acceptable: <110 mg/dL Borderline high: 110-129 mg/dL High: >or= 130 mg/dL Ages > or = 20 years Optimal: <100 mg/dL Near optimal: 100-129 mg/dL Borderline high: 130-159 mg/dL High: >160 mg/dL Calculated using the Saji LDL-C estimating equation. This equation was implemented on 2024. Prior to this date LDL-C was estimated using the Friedewald equation. Literature References: 1. Expert Panel on Integrated Guidelines for Cardiovascular Health and Risk Reduction in Children and Adolescents. Pediatrics 2011;128:S213 2. NCEP Expert Panel. Circulation 2004;110:227 3. Saji Richardson et al. MARY Cardiol. 2020 March 15;5(5):540-548. doi: 10.1001/jamacardio.2020.0013 Current Interpretive Data was last revised on 2024. Testing performed by: [facility], [address] [place] [address]., [address] Non-HDL Cholesterol 107 mg/dL RACHELLE [place] Comment: Interpretive Data Ages < or = 19 years Acceptable: <120 mg/dL Borderline high: 120-144 mg/dL High: >145 mg/dL Ages > or = 20 years When triglycerides are >200 mg/dL, Non-HDL cholesterol is a secondary target of therapy with treatment goals that are 30 mg/dL greater than the LDL cholesterol target. Literature References: 1. Expert Panel on Integrated Guidelines for Cardiovascular Health and Risk Reduction in Children and Adolescents. Pediatrics 2011;128:S213 2. NCEP Expert Panel. Circulation 2004;110:227 Current Interpretive Data was last revised on 2018. Testing performed by: [address], [place]., [address] Chol/HDL ratio 3 RACHELLE [place] Comment:Testing performed by : [facility], [address] [place] [address]., [address] Blood 11/27/2024 1:26 PM NETWORK ANALYST 11/27/2024 8:50 PM NETWORK ANALYST us Nick Coello MD LAB BLOOD ORDERABLES Final Result RACHELLE [address] [place] [address] * Dexa Axial Skeleton Bone Density 1 or 2 Site (03/02/2023 11:19 AM CDT) Anatomical Region Laterality Modality Body N/A Other 03/02/2023 4:45 PM CDT Narrative 03/02/2023 4:46 PM CDT EXAM DESCRIPTION: DEXA AXIAL SKELETON BONE DENSITY 1 OR MORE SITES REASON FOR STUDY: 72 y/o year old F with given history of screening. Postmenopausal [employer]/Model: [employer] ([id number]) CLINICAL INFORMATION: Current height: 66 inches Maximum height: 66 inches Weight: 186 pounds Risk factors: Postmenopausal, parental hip fracture, smoking history COMPARISON: 09/06/2020 FINDINGS: AP LUMBAR SPINE L1-L4: Total BMD is 0.931 g/cm2 T-score is -1.1 Dissimilar scan types or analysis methods precludes assessment for calculating a significant change. LEFT HIP: Total BMD is 0.796 g/cm2 T-score is -1.2 Dissimilar scan types or analysis methods precludes assessment for calculating a significant change. Femoral neck BMD is 0.685 g/cm2 T-score is -1.5 FRAX: 10 year risk for a major osteoporotic fracture is 19 %, 10 year risk for a hip fracture is 9.7 % IMPRESSION: Low Bone Mass. REFERENCE: Bone mineral density: Normal (T-score above or = -1.0) Low bone mass (T-score between -1.0 and -2.5) replaces the previously used term osteopenia Osteoporosis (T-score = or below -2.5) Medical evaluation for secondary causes of low bone mineral density may be appropriate. FRAX is a World Health Organization validated fracture risk assessment tool that calculates a person's 10 year probability of a major osteoporosis related fracture and hip fracture. According to the National Osteoporosis Foundation guidelines, postmenopausal women and men age 50 or older with low bone mass and a 10 year probability of a major osteoporosis related fracture = or greater than 20% or a 10 year probability of a hip fracture = or greater than 3% should be considered for treatment. For further information, including treatment recommendations, please refer to the 2013 ISCD Official Positions (http://www.iscd.org) and the NOF's Clinician's Guide to Prevention and Treatment of Osteoporosis (http://www.nof.org/professionals/clinical-guidelines) THIS IS AN ELECTRONICALLY VERIFIED FINAL REPORT 03/02/2023 4:46 PM - Electronically signed by Shun Rivera M.D. MF: DEAN Report ID: [id number] Reading Location: [place] [address] Procedure Note Shun Rivera MD - 03/02/2023 EXAM DESCRIPTION: DEXA AXIAL SKELETON BONE DENSITY 1 OR MORE SITES REASON FOR STUDY: 72 y/o year old F with given history of screening. Postmenopausal [employer]/Model: [employer] ([id number]/N [id number]) CLINICAL INFORMATION: Current height: 66 inches Maximum height: 66 inches Weight: 186 pounds Risk factors: Postmenopausal, parental hip fracture, smoking history COMPARISON: 09/06/2020 FINDINGS: AP LUMBAR SPINE L1-L4: Total BMD is 0.931 g/cm2 T-score is -1.1 Dissimilar scan types or analysis methods precludes assessment for calculating a significant change. LEFT HIP: Total BMD is 0.796 g/cm2 T-score is -1.2 Dissimilar scan types or analysis methods precludes assessment for calculating a significant change. Femoral neck BMD is 0.685 g/cm2 T-score is -1.5 FRAX: 10 year risk for a major osteoporotic fracture is 19 %, 10 year risk for ahip fracture is 9.7 % IMPRESSION: Low Bone Mass. REFERENCE: Bone mineral density: Normal (T-score above or = -1.0) Low bone mass (T-score between -1.0 and -2.5) replaces thepreviously used term osteopenia Osteoporosis (T-score = or below -2.5) Medical evaluation for secondary causes of low bone mineral density may be appropriate. FRAX is a World Health Organization validated fracture risk assessmenttool that calculates a person's 10 year probability of a major osteoporosisrelated fracture and hip fracture. According to the National OsteoporosisFoundation guidelines, postmenopausal women and men age 50 or older with low bonemass and a 10 year probability of a major osteoporosis related fracture = or greater than 20% or a 10 year probability of a hip fracture = or greaterthan 3% should be considered for treatment. For further information, including treatment recommendations, please referto the 2013 ISCD Official Positions (http://www.iscd.org) and the NOF's Clinician's Guide to Prevention and Treatment of Osteoporosis (http://www.nof.org/professionals/clinical-guidelines) THIS IS AN ELECTRONICALLY VERIFIED FINAL REPORT 03/02/2023 4:46 PM - Electronically signed by Shun Rivera M.D. MF: DEAN Report ID: [id number] Reading Location: [place] [address] Nick Coello MD IMG DXA PROCEDURES Final R esult * CT Lung Cancer Screening (03/31/2022 11:55 AM CDT) Anatomical Region Laterality Modality Chest N/A Computed Tomogra phy 04/01/2022 10:0 5 AM CDT Impressions 04/01/2022 10:21 AM CDT A few small lung nodules appear unchanged, measuring up to approximately 4 mm. A few small new lung nodules are also noted, measuring up to 4 mm as well, and these are probably benign. Follow-up is recommended with low-dose chest CT in 6 months. Unchanged innumerable tiny centrilobular ground-glass nodules in the upper lobes, and patchy areas of ground-glass opacification with predominantly peribronchial distribution. Findings are nonspecific, but likely in the spectrum of smoking related lung diseases, is, including respiratory bronchiolitis (RB), respiratory bronchiolitis interstitial lung disease (RB-ILD) and desquamative interstitial pneumonia DIP. Unchanged indeterminate area of nodular appearance in the right hilar region/right middle lobe, measuring 2.4 cm. It is unclear if this represents a lung nodule, a lymph node, or a vascular structure. Evaluation with contrast enhanced chest CT is recommended. Other findings as described above. Lung-RADS v1.1 category 3S: Probably benign. Finding other than a pulmonary nodule which is potentially clinically significant. Recommendation: Follow up low-dose chest CT in 6 months. THIS IS AN ELECTRONICALLY VERIFIED FINAL REPORT 04/01/2022 10:21 AM - Electronically signed by Simone Timmons M.D. RL: KO Report ID: [id number] Reading Location: [id number] 04/01/2022 10:21 AM CDT EXAM DESCRIPTION: CT LUNG CANCER SCREENING REASON FOR STUDY: Screening CT of the chest in a current smoker with a 81 pack year smoking history. Additional history: None. TECHNIQUE: Low dose CT scan of the chest was performed without intravenous contrast using helical scanning technique. The exam extends from the lung apices through the lung bases. Automatic exposure control was used as a dose optimization technique. NOTE: This study was performed for the specific purposes of lung cancer screening and is not an alternative to diagnostic chest CT. RADIATION DOSE: CT dose index volume (CTDIvol) = 1.87 mGy COMPARISON: Chest CT dated 05/27/2016. FINDINGS: SMOKING RELATED LUNG DISEASE: Minimal emphysema in the upper lungs. Innumerable tiny centrilobular ground-glass nodules are again seen in the upper lobes, as well as areas of patchy ground-glass opacification with a predominantly peribronchial distribution. These findings in a smoker are likely in the spectrum of smoking related lung diseases, including respiratory bronchiolitis (RB), respiratory bronchiolitis interstitial lung disease (RB-ILD) and desquamative interstitial pneumonia DIP. LUNG NODULES: There are calcified granulomas. A few small solid noncalcified lung nodules are again seen without significant interval change. For reference, there is an unchanged small cluster of nodules in the paramediastinal aspect of the left upper lobe, the largest of which measures approximately 5 mm on axial image 33. A few new nodules are seen. For reference, there is a new 4 mm nodule in the right upper lobe posterior segment on image 64. There is also a new left lower lobe nodule measuring 4 mm on image 188. There is an unchanged 2.4 cm nodular appearing area in the perihilar aspect of the right middle lobe on axial image 128. It is unclear if this represents a lung nodule, a lymph node, or a vascular structure. OTHER: There is no new consolidation. The airways are patent and normal in caliber. There is mild diffuse bronchial wall thickening, likely secondary to chronic bronchitis in a smoker. There is no pleural effusion or pneumothorax. Unchanged mildly enlarged lymph nodes in the paratracheal chains, as well as calcified lymph nodes, likely sequelae of old granulomatous disease. The heart size is normal. Mild calcified plaques in the coronary arteries. No pericardial effusion. Dlnl-[id number] calcified plaques in the thoracic aorta. The ascending aorta is ectatic, measuring 3.8 cm in diameter. There is no aneurysm. The central pulmonary arteries have normal caliber. Limited low-dose images through the upper abdomen demonstrate a filter in the inferior vena cava at the level of the liver. Examination of bone windows demonstrates no suspicious lytic or blastic lesions. us Nick Coello MD IMG CT PROCEDURES Final Re sult * COLONOSCOPY (10/29/2020 11:52 AM NETWORK ANALYST) Anatomical Region Laterality Modality Other Narrative Procedure Note Nick Contreras MD - 10/29/2020 11:52 AM CST [facility] Patient Name: Roel Lund Procedure Date: 10/29/2020 11:52AM Date of : 1950 Admit Type: Outpatient Age: 70 Gender: Female Attending MD: Nick Contreras M.D. Room: [facility] ENDOSCOPY ROOM 1 Note Status: Finalized Patient Profile: This is a 70 year old female. No previouscolonoscopy. Noted positive cologuard test. Procedure: Colonoscopy Indications: Screening for colorectal malignant neoplasm, This is the patient's first colonoscopy Referring MD: Nick Coello M.D. Providers: Nick Contreras M.D. Impression: - One 8 mm polyp in the transverse colon, removedwith a cold snare. Resected and retrieved. - One 18 mm polyp in the sigmoid colon, removed with hot snare. Clip applied. Resected and retrieved. - Two small 4 mm and 5 mm polyps of the rectumremoved with cold snare technique. - Internal hemorrhoids. Recommendation: - Await pathology results. - Repeat colonoscopy in 1 year for screeningpurposes. - No aspirin, ibuprofen, naproxen, or other non-steroidal anti-inflammatory drugs for 5 daysafter polyp removal. Medicines: Monitored Anesthesia Care Complications: No immediate complications. Estimated Blood Loss: Estimated blood loss: none. Procedure: Pre-Anesthesia Assessment: - Prior to the procedure, a History and Physical was performed, and patient medications and allergieswere reviewed. The patient's tolerance of previous anesthesia was also reviewed. The risks and benefitsof the procedure and the sedation options and riskswere discussed with the patient. All questions were answered, and informed consent was obtained. Prior Anticoagulants: The patient has taken no previous anticoagulant or antiplatelet agents. ASA Grade Assessment: II - A patient with mild systemicdisease. After reviewing the risks and benefits, the patientwas deemed in satisfactory condition to undergo the procedure. The benefits, risks and alternatives of theprocedure and sedation were discussed and informed consent was obtained. All questions were answered. Please referto the signed informed consent document in the medical record. The scope was passed under direct vision.The Pediatric Colonoscope PCF-H190L [id number] was introduced through the anus and advanced to the the cecum, identified by appendiceal orifice andileocecal valve. The bowel preparation used was Miralax. The bowel preparation used was bisacodyl tablets. Bowel prep was administered using a split dose. Thequality of the bowel preparation was fair. Findings: The perianal and digital rectal examinations were normal. Quality of the prep was fair as large amount of liquid was notedwithin the colon. Patient has the persistent coughing and secretion herthroat from smoking well sedated and this made the test technically somewhat more difficult. The cecum appeared normal. The ascending colon appeared normal. A 8 mm polyp was found in the transverse colon. The polyp wassessile. The polyp was removed with a cold snare. Resection and retrieval were complete. The descending colon was unremarkable. One large 18 mmsessile polyp noted in the sigmoid colon. This was removed with hot snare technique and 1 clip was applied to minimize risk of bleeding. Therewas the moderate degree of diverticulosis in the sigmoid colon. Two 4 mmand 5 mm sessile polyp noted in the rectum, both were removed with cold snare technique. Retroflexion of the rectum showed small tomedium-sized internal hemorrhoids. Electronically signed by Nick Contreras M.D. Nick Contreras M.D. 11/01/2020 2:27:52 PM Number of Addenda: 0 Note Initiated On: 10/29/2020 11:52 AM Procedure Code(s): --- Professional --- 09169, Colonoscopy, flexible; with removal of tumor(s), polyp(s), or other lesion(s) by snare technique Diagnosis Code(s): --- Professional --- Z12.11, Encounter for screening for malignant neoplasm of colon D12.3, Benign neoplasm of transverse colon (hepatic flexure orsplenic flexure) CPT copyright 2017 [employer]. All rights reserved. The codes documented in this report are preliminary and upon cullet crusher reviewmay be revised to meet current compliance requirements. Recognized by the [employer] for promoting quality in endoscopy Nick Contreras MD ENDOSCOPY PROCEDURES Final Result * DIABETES EYE EXAM (05/21/2019) Diabetic Eye Exam Normal Historical Provider HEALTH MAINTENANCE Final Result * Hepatitis C antibody (03/18/2018 3:40 PM CDT) Hep C Ab Nonreactive Nonreactive [facility] Comment: Interpretive Data Positive and greyzone results should be confirmed by a molecular method. If positive or greyzone, a second separately collected sample should be submitted for Hepatitis C Virus RNA. Detection and Quantitation by Real-Time Reverse Imaging Services Director-PCR.Current Interpretive data was last revised on 2017. Blood specimen (specimen) 03/18/2018 3:40 PM CDT 03/18/2018 4:14 PM CDT Narrative [facility] - 03/19/2018 9:19 AM CDT Notinfile Unknown LAB MICROBIOLOGY - GENERAL ORD ERABLES Edited Result - Final [facility] Department [place] [address] from Last 3 Months or Most Recently Relevant to Health Maintenance Insurance [facility] MEDICARE ADVANTAGE [place] [id number] [place] [id number] MEDICARE ADVANTAGE [place] [address] MEDICARE ADVANTAGE [facility] MEDICARE ADVANTAGE Advance Directives For more information, please contact: [phone] * Full Code (Latest Code Status on File) Date Activated Date Inactivated Comments 06/05/2022 10:00 PM 06/08/2022 10:47 PM * Full Code Date Activated Date Inactivated Comments 10/29/2020 11:37 AM 10/29/2020 6:31 PM * Full Code Date Activated Date Inactivated Comments 10/29/2020 11:37 AM 10/29/2020 11:37 AM * Full Code Date Activated Date Inactivated Comments 05/11/2018 4:42 PM 05/24/2018 3:59 PM * Full Code Date Activated Date Inactivated Comments 03/10/2018 5:36 PM 03/11/2018 6:05 AM Healthcare Agents on File Name Relationship Healthcare Agent Relationship Communication Jose Cruz Radha Martin Health Care Agent Haile Martin First Alternat e Health Care Agent Care Teams Manager Of Software Development Relationship Specialty Start Date End Date Nick Coello MD PCP - General 02/12/17 Santana Martinez MD Consulting Physician Cardiology 01/20/18 Rodolfo Reyes NP Nurse Practitioner Urology 12/22/23
--- OUTSIDE RECORDS SUMMARY | 2025-05-20 15:18 | XMS_ITS | Encounter Summary ---
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 Gender Identity Not on file Sexual Orientation Not on file Occupation Industry Job Start Date Job End Date retired Not on file Not on file Not on file documented as of this encounter Plan of Treatment Upcoming Encounters Date Type Department Care Team (Late st Contact Info) Description 05/29/2025 10:30 AM CDT Hospital Encounter [facility] Operating Room [address] [place] [address] Tommy Ford MD [address] [facility] [address] [place] [address] 05/29/2025 10:30 AM CDT - 05/29/2025 12:10 PM CDT Surgery [facility] Operating Room [address] [place] [address] Tommy Ford MD [address] [facility] [address] [place] [address] LEFT LUMPECTOMY WITH WIRE LOCALIZATION Scheduled Procedures Name Priority Associated Diagnoses Date/Ti me LUMPECTOMY Ductal carcinoma in situ (DCIS) of left breast 05/29/2025 10:30 AM CDT documented as of this encounter Visit Diagnoses Not on filedocumented in this encounter Care Teams Automobile Rental Agent Relationship Specialty Start Date End Date Nick Coello MD PCP - General 02/12/17 Santana Martinez MD Consulting Physician Cardiology 01/20/18 Rodolfo Reyes NP Nurse Practitioner Urology 12/22/23 documented as of this encounter
--- OUTSIDE RECORDS SUMMARY | 2025-05-20 15:18 | XMS_ITS | Encounter Summary ---
Author Organization [facility] Address [address] [place] [address] Phone Care Team Providers Care Scraper Tender Name Role Phone Nick Coello MD Primary Care Provider [phone] Santana Martinez MD Unavailable [phone] Rodolfo Reyes NP Unavailable [phone] Encounter Details Date Type Department Care Team (Late st Contact Info) Description 12/30/2017 Orders Only [facility] ProviderJing MD [address] [place] [address] Social History Tobacco Use Types Packs/Day Years Used Date Smoking Tobacco: Every Day Smokeless Tobacco: Never Comments Unknown Sex and Gender Information Value Date Recorded Sex Assigned at Not on file 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 Gender Identity Not on file Sexual Orientation Not on file documented as of this encounter Plan of Treatment Upcoming Encounters Date Type Department Care Team (Late st Contact Info) Description 05/29/2025 10:30 AM CDT Hospital Encounter [facility] Operating Room [address] [place] [address] Tommy Ford MD [address] [place] [address] [address] [place] [address] 05/29/2025 10:30 AM CDT - 05/29/2025 12:10 PM CDT Surgery [facility] Operating Room [address] [place] [address] Tommy Ford MD [address] [place] [address] [address] [place] [address] LEFT LUMPECTOMY WITH WIRE LOCALIZATION Scheduled Procedures Name Priority Associated Diagnoses Date/Ti me LUMPECTOMY Ductal carcinoma in situ (DCIS) of left breast 05/29/2025 10:30 AM CDT documented as of this encounter Procedures Procedure Name Priority Date/Time Associated Diagnosis Comments DISCHARGE LABORATORY CUMULATIVE REPORT 12/30/2017 12:00 AM POWER GENERATION PLANT OPERATOR documented in this encounter Results * DISCHARGE LABORATORY CUMULATIVE REPORT (12/30/2017 12:00 AM POWER GENERATION PLANT OPERATOR) Narrative 12/30/2017 12:00 AM POWER GENERATION PLANT OPERATOR Ordered by an unspecified provider. us Historical Provider LAB BLOOD ORDERABLES Tiffanie l Result documented in this encounter Visit Diagnoses Not on filedocumented in this encounter Care Teams Scraper Tender Relationship Specialty Start Date End Date Nick Coello MD PCP - General 02/12/17 Santana Martinez MD Consulting Physician Cardiology 01/20/18 Rodolfo Reyes NP Nurse Practitioner Urology 12/22/23 documented as of this encounter
--- OUTSIDE RECORDS SUMMARY | 2025-05-20 15:18 | XMS_ITS | Encounter Summary ---
Author Organization [facility] Address [address] [place] [address] Phone Care Team Providers Care Front Office Specialist Name Role Phone Nick Coello MD Primary Care Provider [phone]- [phone] Santana Martinez MD Unavailable [phone] Rodolfo Reyes NP Unavailable [phone] Encounter Details Date Type Department Care Team (Late st Contact Info) Description 10/05/2017 Orders Only [facility] [address] [place] [address] Iman Fish MA Social History Tobacco Use Types Packs/Day Years Used Date Smoking Tobacco: Never Assessed Comments Unknown Sex and Gender Information Value Date Recorded Sex Assigned at Not on file 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 90 tablet 1 10/05/2017 05/24/2018 documented in this encounter Plan of Treatment Upcoming Encounters Date Type Department Care Team (Late st Contact Info) Description 05/29/2025 10:30 AM CDT Hospital Encounter [facility] Operating Room [address] [place] [address] Tommy Ford MD [address] [facility] [address] [place] [address] 05/29/2025 10:30 AM CDT - 05/29/2025 12:10 PM CDT Surgery [facility] Operating Room [address] [place] [address] Tommy Ford MD [address] [facility] [address] [place] [address] LEFT LUMPECTOMY WITH WIRE LOCALIZATION Scheduled Procedures Name Priority Associated Diagnoses Date/Ti me LUMPECTOMY Ductal carcinoma in situ (DCIS) of left breast 05/29/2025 10:30 AM CDT documented as of this encounter Visit Diagnoses Not on filedocumented in this encounter Discontinued Medications Medication Sig Discontinue Reason Start Date End Da te levothyroxine (SYNTHROID, LEVOTHROID) 125 mcg tablet TAKE 1 TABLET BY MOUTH EVERY DAY Reorder 07/12/2017 10/05/2017 documented as of this encounter Care Teams Front Office Specialist Relationship Specialty Start Date End Date Nick Coello MD PCP - General 02/12/17 Santana Martinez MD Consulting Physician Cardiology 01/20/18 Rodolfo Reyes NP Nurse Practitioner Urology 12/22/23 documented as of this encounter
--- OUTSIDE RECORDS SUMMARY | 2025-05-20 15:18 | XMS_ITS | Encounter Summary ---
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 Gender Identity Not on file Sexual Orientation Not on file Occupation Industry Job Start Date Job End Date retired Not on file Not on file Not on file documented as of this encounter Plan of Treatment Upcoming Encounters Date Type Department Care Team (Late st Contact Info) Description 05/29/2025 10:30 AM CDT Hospital Encounter [facility] Operating Room [address] [place] [address] Tommy Ford MD [address] [facility] [address] [place] [address] 05/29/2025 10:30 AM CDT - 05/29/2025 12:10 PM CDT Surgery [facility] Operating Room [address] [place] [address] Tommy Ford MD [address] [facility] [address] [place] [address] LEFT LUMPECTOMY WITH WIRE LOCALIZATION Scheduled Procedures Name Priority Associated Diagnoses Date/Ti me LUMPECTOMY Ductal carcinoma in situ (DCIS) of left breast 05/29/2025 10:30 AM CDT documented as of this encounter Visit Diagnoses Not on filedocumented in this encounter Care Teams Fitness And Wellness Director Relationship Specialty Start Date End Date Nick Coello MD PCP - General 02/12/17 Santana Martinez MD Consulting Physician Cardiology 01/20/18 Rodolfo Reyes NP Nurse Practitioner Urology 12/22/23 documented as of this encounter
--- OUTSIDE RECORDS SUMMARY | 2025-05-20 15:18 | XMS_ITS | Encounter Summary ---
Author Organization [facility] Address [address] [place] [address] Care Team Providers Care Disc Jockey Name Role Phone Nick Coello MD Primary Care Provider [phone] Santana Martinez MD Unavailable [phone] Rodolfo Reyes NP Unavailable [phone] Reason for Visit * Reason Onset Date Comments Scheduling Appointments 09/05/2020 Called f or DEXA appointment reminder; no answer Encounter Details Date Type Department Care Team (Late st Contact Info) Description 09/05/2020 Telephone [facility] [address] [place] [address] Joellen Jaffe RT Scheduling Appointments (Called for DEXA appointment reminder; no answer) Social History Tobacco Use Types Packs/Day Years Used Date Smoking Tobacco: Every Day Cigarettes 1.5 50 Started: [birth year]/11/1968; Last attempted to quit: 03/19/2018 Smokeless Tobacco: Former Alcohol Use Standard Drinks/Week Comments No 0 (1 standard drink = 0.6 oz pur e alcohol) PHQ-2 Answer Date Recorded PHQ-2 Total Score (If total score is 3 or more points, staff should administer the PHQ-9) 0 06/25/2020 Comments No Sex and Gender Information Value Date Recorded Sex Assigned at Not on file 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 Gender Identity Not on file Sexual Orientation Not on file Occupation Industry Job Start Date Job End Date retired Not on file Not on file Not on file documented as of this encounter Plan of Treatment Upcoming Encounters Date Type Department Care Team (Late st Contact Info) Description 05/29/2025 10:30 AM CDT Hospital Encounter [facility] Operating Room [address] [place] [address] Tommy Ford MD [address] [facility] [address] [place] [address] 05/29/2025 10:30 AM CDT - 05/29/2025 12:10 PM CDT Surgery [facility] Operating Room [address] [place] [address] Tommy Ford MD [address] [facility] [address] [place] [address] LEFT LUMPECTOMY WITH WIRE LOCALIZATION Scheduled Procedures Name Priority Associated Diagnoses Date/Ti me LUMPECTOMY Ductal carcinoma in situ (DCIS) of left breast 05/29/2025 10:30 AM CDT documented as of this encounter Visit Diagnoses Not on filedocumented in this encounter Care Teams Disc Jockey Relationship Specialty Start Date End Date Nick Coello MD PCP - General 02/12/17 Santana Martinez MD Consulting Physician Cardiology 01/20/18 Rodolfo Reyes NP Nurse Practitioner Urology 12/22/23 documented as of this encounter
--- OUTSIDE RECORDS SUMMARY | 2025-05-20 15:18 | XMS_ITS ---
Author Organization [facility] Address [address] [place] [address] Care Team Providers Care Director Of Sports Performance Name Role Phone Nick Coello MD Primary Care Provider + [phone] Santana Martinez MD Unavailable [phone] Rodolfo Reyes NP Unavailable [phone] Active Problems Problem Noted Date Diagnosed Date [...] AM CDT): Patient referred to [facility]. Note for November 27 2024 Assessment [...] UTI Assessment & Plan (10/31/2023 4:27 PM CREW CHIEF): Patient is here for annual exam she feels well. Patient is scheduled for repair of aortic aneurysm November 18, 2023 [facility] she is already started the preop evaluation at [facility]. She is in no distress at this [...] 01/14/2020 Assessment & Plan (01/14/2020 4:18 PM CREW CHIEF): Subcu hematoma May 2018 patient is full [...] left lower extremity. This was done at [facility]. . March 26, 2018 she had a fall at home had a subdural hematoma was treated at [facility] had craniotomy done.. Patient subsequently went to [facility] for several weeks. Patient is now at home she has undergone physical therapy HOSPITAL RECONCILIATION SOME MEDICINES HAS BEEN COMPLETED.. PATIENT THIS TIME IS GREAT SKIN GRADER STRENGTH SHE WALKS WITH A WALKER SHE [...] daily. Assessment & Plan (10/31/2023 4:25 PM CREW CHIEF): Hypertension well controlled patient is tolerating medications [...] therapy. Assessment & Plan (01/14/2020 4:16 PM CREW CHIEF): Blood pressure well controlled patient is tolerating [...] 2024 Assessment & Plan (10/31/2023 4:31 PM CREW CHIEF): Patient did not get the lung cancer [...] reviewed. Assessment & Plan (10/13/2017 1:23 PM CREW CHIEF): Patient here for annual exam she has [...] controlled Assessment & Plan (10/31/2023 4:30 PM CREW CHIEF): Diabetes well controlled HgbA1c 5.7 on October [...] exam Assessment & Plan (01/14/2020 4:19 PM CREW CHIEF): Diabetes well controlled update labs a hemoglobin [...] time. Assessment & Plan (01/01/2018 4:11 PM CREW CHIEF): Patient not using her glucometer therefore she [...] future. Assessment & Plan (12/08/2017 9:09 AM CREW CHIEF): Patient's diabetes not improved recent hemoglobin HgbA1c [...] patient. Assessment & Plan (11/03/2017 3:20 PM CREW CHIEF): Patient's diabetes not controlled hemoglobin HgbA1c was [...] 22. Assessment & Plan (10/13/2017 1:23 PM CREW CHIEF): Check hemoglobin HgbA1c. Acquired hypothyroidism 07/01/2017 Assessment [...] requested Assessment & Plan (10/13/2017 1:23 PM CREW CHIEF): Check TSH level today. Mild persistent asthma 07/01/2017 Assessment & Plan (10/31/2023 4:27 PM CREW CHIEF): Asthma very stable rarely needs albuterol Assessment & Plan (08/21/2021 2:29 PM CDT): Patient asthma is very stable occasionally needs albuterol. Assessment & Plan (07/31/2019 5:57 PM CDT): Patient's asthma is very stable at this time no change in therapy Assessment & Plan (11/03/2017 3:15 PM CREW CHIEF): Patient describes wheezing shortness of breath especially at night. Albuterol HFA and Breo will be continued. Peripheral artery disease (CMS/HCC) 07/01/2017 Assessment & Plan (06/29/2020 4:13 PM CDT): Patient having no problems with walking leg pain she of remains on Coumadin no change in therapy Assessment & Plan (01/14/2020 4:20 PM CREW CHIEF): History of recurring DVT she is maintain on Coumadin therapy no changes. Patient is compliant in getting her pro times. Assessment & Plan (01/28/2019 12:49 PM CDT): Patient has had no further symptoms of P 80 at this time. Assessment & Plan (01/01/2018 4:08 PM CREW CHIEF): The schedule for a stent in her right leg next week. Referred her to the intervention leather novelty parts cutter because of persistent PAD symptoms. Double End Chucking Machine Operator re-emphasized the story I have been giving her regarding nicotine is extremely important that she stop smoking. Patient mid she likes smoking. Is considering the Chantix. Assessment & Plan (12/01/2017 10:33 AM CREW CHIEF): Patient's intermittent claudication continues at this point abdomen re-evaluate her abdomen regarding possibility of aortic aneurysm before proceeding with any MRIs a MRA images of her lower extremities. Assessment & Plan (11/03/2017 3:13 PM CREW CHIEF): Patient is a abnormal YEYO 0.7 index [...] issues. Assessment & Plan (10/13/2017 1:25 PM CREW CHIEF): Mild intermittent claudication of arterial Doppler/YEYO needs [...] years. Assessment & Plan (12/01/2017 10:31 AM CREW CHIEF): Importance of nicotine discussed again patient will consider Chantix. Assessment & Plan (11/03/2017 3:17 PM CREW CHIEF): Patient advised discontinue smoking consider medications sister was smoking Chantix, Wellbutrin be considered. Patient admits she does not want to stop smoking. She did appear concern will discuss the effects of smoking on his circulation leg problems. Advisable discontinue smoking she if is going to need back surgery possibly in the future Current Treatment and Therapy Plans No current plan information found. Past Treatment and Therapy Plans No past plan information found. Lifetime Dose Tracking * Chemical Lifetime Dose Automatic Entry Manual Entr y DLP 2,513 mGycm 2,513 mGycm 0 mGycm CTDIvol 1.87 mGy 1.87 mGy 0 mGy Resolved Problems Problem Noted Date Diagnosed Date [...] 06/06/2022 Assessment & Plan (01/13/2022 2:01 PM CREW CHIEF): Patient presents with red, moist recurrent rash [...] (09/23/2020): Added automatically from request for surgery [id number] Bilateral leg edema 07/31/2019 06/25/20 Assessment & Plan (07/31/2019 12:10 PM CDT): [...] (05/12/2018): Added automatically from request for surgery [id number] Cognitive deficits 05/04/2018 0 Assessment & Plan [...] 01/14/2020 Assessment & Plan (12/01/2017 10:35 AM CREW CHIEF): MRI of patient's back shows minimal disc protrusion. Lumbar spine. Assessment & Plan (11/03/2017 3:08 PM CREW CHIEF): Patient's because concern is back pain. Describes cramping very painful after standing less approximate 10 minutes cannot walk very far because of back pain patient also has intermittent claudication symptoms. She has some relief with tilting forward. She bends over back pain increases considerably. His sciatica symptoms. MRI of her back is requested. Dyspnea 11/03/2017 01/14/2020 Assessment & Plan (01/01/2018 4:12 PM CREW CHIEF): Patient's opinion that her shortness of breath is improved. No objective evidence of this. Will readdress on next visit. Assessment & Plan (12/01/2017 10:32 AM CREW CHIEF): Patient's echocardiogram returned normal. Etiology of her shortness of breath may be underlying asthma. Deconditioning and possible overweight. Given recommend weight loss. Continue albuterol HFA. Assessment & Plan (11/03/2017 3:16 PM CREW CHIEF): Patient has dyspnea is a chronic condition [...] 12/01/2017 Assessment & Plan (12/01/2017 10:34 AM CREW CHIEF): Get an ultrasound of her abdomen recent MR for back suggest she has aortic aneurysm. Assessment & Plan (11/03/2017 3:11 PM CREW CHIEF): Patient has an abdominal aortic aneurysm 3.5 centimeters in diameter 2 years ago. Will do a repeat ultrasound her abdomen in the next several months. However she is going to need MRA her lower extremities this may sure aneurysm on that test procedure. Patient so advised Chronic rhinitis 11/01/2017 08/21/2021 Assessment & Plan (11/03/2017 3:10 PM CREW CHIEF): Patient's chronic rhinitis constant postnasal drip and [...] time. Assessment & Plan (10/13/2017 1:24 PM CREW CHIEF): Patient on chronic anticoagulation therapy of Coumadin. She is compliant in getting a pro times done. Acute cystitis without hematuria 06/16/2022
--- OUTSIDE RECORDS SUMMARY | 2025-05-20 15:18 | XMS_ITS | Encounter Summary ---
Author Organization [facility] Address [address] [place] [address] Phone Care Team Providers Care Director Of State Name Role Phone Nick Coello MD Primary Care Provider [phone] Santana Martinez MD Unavailable [phone] Rodolfo Reyes NP Unavailable [phone] Encounter Details Date Type Department Care Team (Late st Contact Info) Description 11/01/2017 Orders Only [facility] ProviderJing MD [address] [place] [id number] Social History Tobacco Use Types Packs/Day Years Used Date Smoking Tobacco: Every Day Smokeless Tobacco: Never Comments Unknown Sex and Gender Information Value Date Recorded Sex Assigned at Not on file Legal Sex Female 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 CASINO SURVEILLANCE OFFICER Gender Identity Not on file Sexual Orientation Not on file documented as of this encounter Plan of Treatment Upcoming Encounters Date Type Department Care Team (Late st Contact Info) Description 05/29/2025 10:30 AM CDT Hospital Encounter [facility] Operating Room [address] [place] [address] Tommy Ford MD [address] [place] [address] DR CORREA [address] [place] [id number] 05/29/2025 10:30 AM CDT - 05/29/2025 12:10 PM CDT Surgery [facility] Operating [address] [place] [address] Tommy Ford MD [address] [place] [address] [address] [place] [address] LEFT LUMPECTOMY WITH WIRE LOCALIZATION Scheduled Procedures Name Priority Associated Diagnoses Date/Ti me LUMPECTOMY Ductal carcinoma in situ (DCIS) of left breast 05/29/2025 10:30 AM CDT documented as of this encounter Procedures Procedure Name Priority Date/Time Associated Diagnosis Comments DISCHARGE LABORATORY CUMULATIVE REPORT 11/01/2017 12:00 AM CASINO SURVEILLANCE OFFICER documented in this encounter Results * DISCHARGE LABORATORY CUMULATIVE REPORT (11/01/2017 12:00 AM CASINO SURVEILLANCE OFFICER) Narrative 11/01/2017 12:00 AM CASINO SURVEILLANCE OFFICER Ordered by an unspecified provider. us Historical Provider LAB BLOOD ORDERABLES Tiffanie l Result documented in this encounter Visit Diagnoses Not on filedocumented in this encounter Care Teams Director Of State Relationship Specialty Start Date End Date Nick Coello MD PCP - General 02/12/17 Santana Martinez MD Consulting Physician Cardiology 01/20/18 Rodolfo Reyes NP Nurse Practitioner Urology 12/22/23 documented as of this encounter
--- OUTSIDE RECORDS SUMMARY | 2025-05-20 15:18 | XMS_ITS | Encounter Summary ---
Author Organization [facility] Address [address] [place] [address] Phone Care Team Providers Care Instrumentation Technologist Name Role Phone Nick Coello MD Primary Care Provider [phone] Santana Martinez MD Unavailable [phone] Rodolfo Reyes NP Unavailable [phone] Encounter Details Date Type Department Care Team (Late st Contact Info) Description 02/02/2018 Orders Only [facility] ProviderJing MD [address] [place] [address] Social History Tobacco Use Types Packs/Day Years Used Date Smoking Tobacco: Every Day Smokeless Tobacco: Never Comments Unknown Sex and Gender Information Value Date Recorded Sex Assigned at Not on file 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 Gender Identity Not on file Sexual Orientation Not on file documented as of this encounter Plan of Treatment Upcoming Encounters Date Type Department Care Team (Late st Contact Info) Description 05/29/2025 10:30 AM CDT Hospital Encounter [facility] Operating Room [address] [place] [address] Tommy Ford MD [address] [place] [address] DR CORREA [address] [place] [id number] 05/29/2025 10:30 AM CDT - 05/29/2025 12:10 PM CDT Surgery [facility] Operating Room [address] [place] [address] Tommy Ford MD [address] [place] [address] [address] [place] [address] LEFT LUMPECTOMY WITH WIRE LOCALIZATION Scheduled Procedures Name Priority Associated Diagnoses Date/Ti me LUMPECTOMY Ductal carcinoma in situ (DCIS) of left breast 05/29/2025 10:30 AM CDT documented as of this encounter Procedures Procedure Name Priority Date/Time Associated Diagnosis Comments DISCHARGE LABORATORY CUMULATIVE REPORT 02/02/2018 12:00 AM CDT documented in this encounter Results * DISCHARGE LABORATORY CUMULATIVE REPORT (02/02/2018 12:00 AM CDT) Narrative 02/02/2018 12:00 AM CDT Ordered by an unspecified provider. Historical Provider LAB BLOOD ORDERABLES Tiffanie l Result documented in this encounter Visit Diagnoses Not on filedocumented in this encounter Care Teams Instrumentation Technologist Relationship Specialty Start Date End Date Nick Coello MD PCP - General 02/12/17 Santana Martinez MD Consulting Physician Cardiology 01/20/18 Rodolfo Reyes NP Nurse Practitioner Urology 12/22/23 documented as of this encounter
--- OUTSIDE RECORDS SUMMARY | 2025-05-20 15:18 | XMS_ITS | Clinical Summary ---
Author Organization [facility] Address [address] [place] [address] Care Team Providers Care Secondary History Teacher Name Role Phone Nick Coello MD Primary Care Provider [phone]- [phone] Santana Martinez MD Unavailable [phone] Rodolfo Reyes NP Unavailable [phone] Allergies No known active allergies Medications albuterol [...] 1 tablet (125 mcg total) by mouth speech therapist early intervention before breakfast 90 tablet 1 025 Active [...] AM CDT): Patient referred to lymphedema Clinic [facility]. Note for November 27 2024 Assessment [...] UTI Assessment & Plan (10/31/2023 4:27 PM ENGINEERING TECHNICAL ANALYST): Patient is here for annual exam she feels well. Patient is scheduled for repair of aortic aneurysm November 18, 2023 [facility] she is already started the preop evaluation at [place]. She is in no distress at this [...] 01/14/2020 Assessment & Plan (01/14/2020 4:18 PM ENGINEERING TECHNICAL ANALYST): Subcu hematoma May 2018 patient is [...] left lower extremity. This was done at [facility]. . March 26, 2018 she had a fall at home had a subdural hematoma was treated at [facility] had craniotomy done.. Patient subsequently went to [facility] for several weeks. Patient is now at home she has undergone physical therapy HOSPITAL RECONCILIATION SOME MEDICINES HAS BEEN COMPLETED.. 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 Assessment & Plan (10/31/2023 4:25 PM ENGINEERING TECHNICAL ANALYST): Hypertension well controlled patient is tolerating [...] therapy. Assessment & Plan (01/14/2020 4:16 PM ENGINEERING TECHNICAL ANALYST): Blood pressure well controlled patient is [...] 2024 Assessment & Plan (10/31/2023 4:31 PM ENGINEERING TECHNICAL ANALYST): Patient did not get the lung [...] reviewed. Assessment & Plan (10/13/2017 1:23 PM ENGINEERING TECHNICAL ANALYST): Patient here for annual exam she [...] controlled Assessment & Plan (10/31/2023 4:30 PM ENGINEERING TECHNICAL ANALYST): Diabetes well controlled HgbA1c 5.7 on [...] exam Assessment & Plan (01/14/2020 4:19 PM ENGINEERING TECHNICAL ANALYST): Diabetes well controlled update labs a [...] time. Assessment & Plan (01/01/2018 4:11 PM ENGINEERING TECHNICAL ANALYST): Patient not using her glucometer therefore [...] future. Assessment & Plan (12/08/2017 9:09 AM ENGINEERING TECHNICAL ANALYST): Patient's diabetes not improved recent hemoglobin [...] patient. Assessment & Plan (11/03/2017 3:20 PM ENGINEERING TECHNICAL ANALYST): Patient's diabetes not controlled hemoglobin HgbA1c [...] 22. Assessment & Plan (10/13/2017 1:23 PM ENGINEERING TECHNICAL ANALYST): Check hemoglobin HgbA1c. Acquired hypothyroidism 07/01/2017 [...] requested Assessment & Plan (10/13/2017 1:23 PM ENGINEERING TECHNICAL ANALYST): Check TSH level today. Mild persistent asthma 07/01/2017 Assessment & Plan (10/31/2023 4:27 PM ENGINEERING TECHNICAL ANALYST): Asthma very stable rarely needs albuterol Assessment & Plan (08/21/2021 2:29 PM CDT): Patient asthma is very stable occasionally needs albuterol. Assessment & Plan (07/31/2019 5:57 PM CDT): Patient's asthma is very stable at this time no change in therapy Assessment & Plan (11/03/2017 3:15 PM ENGINEERING TECHNICAL ANALYST): Patient describes wheezing shortness of breath especially at night. Albuterol HFA and Breo will be continued. Peripheral artery disease (CMS/HCC) 07/01/2017 Assessment & Plan (06/29/2020 4:13 PM CDT): Patient having no problems with walking leg pain she of remains on Coumadin no change in therapy Assessment & Plan (01/14/2020 4:20 PM ENGINEERING TECHNICAL ANALYST): History of recurring DVT she is maintain on Coumadin therapy no changes. Patient is compliant in getting her pro times. Assessment & Plan (01/28/2019 12:49 PM CDT): Patient has had no further symptoms of P 80 at this time. Assessment & Plan (01/01/2018 4:08 PM ENGINEERING TECHNICAL ANALYST): The schedule for a stent in her right leg next week. Referred her to the intervention nurse office because of persistent PAD symptoms. Pick Up Worker re-emphasized the story I have been giving her regarding nicotine is extremely important that she stop smoking. Patient mid she likes smoking. Is considering the Chantix. Assessment & Plan (12/01/2017 10:33 AM ENGINEERING TECHNICAL ANALYST): Patient's intermittent claudication continues at this point abdomen re-evaluate her abdomen regarding possibility of aortic aneurysm before proceeding with any MRIs a MRA images of her lower extremities. Assessment & Plan (11/03/2017 3:13 PM ENGINEERING TECHNICAL ANALYST): Patient is a abnormal YEYO 0.7 [...] issues. Assessment & Plan (10/13/2017 1:25 PM ENGINEERING TECHNICAL ANALYST): Mild intermittent claudication of arterial Doppler/YEYO [...] years. Assessment & Plan (12/01/2017 10:31 AM ENGINEERING TECHNICAL ANALYST): Importance of nicotine discussed again patient will consider Chantix. Assessment & Plan (11/03/2017 3:17 PM ENGINEERING TECHNICAL ANALYST): Patient advised discontinue smoking consider medications [...] 06/06/2022 Assessment & Plan (01/13/2022 2:01 PM ENGINEERING TECHNICAL ANALYST): Patient presents with red, moist recurrent [...] (09/23/2020): Added automatically from request for surgery [id number] Bilateral leg edema 07/31/2019 06/25/20 20 Assessment [...] (05/12/2018): Added automatically from request for surgery [id number] Cognitive deficits 05/04/2018 0 Assessment & Plan [...] 01/14/2020 Assessment & Plan (12/01/2017 10:35 AM ENGINEERING TECHNICAL ANALYST): MRI of patient's back shows minimal disc protrusion. Lumbar spine. Assessment & Plan (11/03/2017 3:08 PM ENGINEERING TECHNICAL ANALYST): Patient's because concern is back pain. Describes cramping very painful after standing less approximate 10 minutes cannot walk very far because of back pain patient also has intermittent claudication symptoms. She has some relief with tilting forward. She bends over back pain increases considerably. His sciatica symptoms. MRI of her back is requested. Dyspnea 11/03/2017 01/14/2020 Assessment & Plan (01/01/2018 4:12 PM ENGINEERING TECHNICAL ANALYST): Patient's opinion that her shortness of breath is improved. No objective evidence of this. Will readdress on next visit. Assessment & Plan (12/01/2017 10:32 AM ENGINEERING TECHNICAL ANALYST): Patient's echocardiogram returned normal. Etiology of her shortness of breath may be underlying asthma. Deconditioning and possible overweight. Given recommend weight loss. Continue albuterol HFA. Assessment & Plan (11/03/2017 3:16 PM ENGINEERING TECHNICAL ANALYST): Patient has dyspnea is a chronic [...] 12/01/2017 Assessment & Plan (12/01/2017 10:34 AM ENGINEERING TECHNICAL ANALYST): Get an ultrasound of her abdomen recent MR for back suggest she has aortic aneurysm. Assessment & Plan (11/03/2017 3:11 PM ENGINEERING TECHNICAL ANALYST): Patient has an abdominal aortic aneurysm 3.5 centimeters in diameter 2 years ago. Will do a repeat ultrasound her abdomen in the next several months. However she is going to need MRA her lower extremities this may sure aneurysm on that test procedure. Patient so advised Chronic rhinitis 11/01/2017 08/21/2021 Assessment & Plan (11/03/2017 3:10 PM ENGINEERING TECHNICAL ANALYST): Patient's chronic rhinitis constant postnasal drip [...] time. Assessment & Plan (10/13/2017 1:24 PM ENGINEERING TECHNICAL ANALYST): Patient on chronic anticoagulation therapy of Coumadin. She is compliant in getting a pro times done. Acute cystitis without hematuria 06/16/2022 Encounters Date Type Department Care Team Description 05/16/2025 10:20 AM CDT Office Visit [facility] [address] [place] [address] Tommy Ford MD Ductal carcinoma in situ (DCIS) of left breast (Primary Dx) 05/16/2025 Telephone [facility] [address] [place] [address] Nick Coello MD 05/16/2025 Orders Only [facility] [address] [place] [address] Tommy Ford MD Ductal carcinoma in situ (DCIS) of left breast (Primary Dx) 05/14/2025 Anticoagulation Visit [facility] [address] [place] [address] Nick Coello MD 05/03/2025 Anticoagulation Visit [facility] [address] [place] [address] Nick Coello MD 05/02/2025 Telephone [facility] [address] [place] [address] Nick Coello MD 04/19/[address] [address] Aline Sanders, LISA 04/18/2025 Results Follow-Up [facility] [address] [place] [address] Nick Coello MD Surgical pathology 04/16/2025 9:55 AM CDT Lab [address] [address] 04/16/2025 9:48 AM CDT - 04/16/2025 11:59 PM CDT Hospital Encounter [address] [address] 1, Dave Rad Rn Rad, Dave Breast Abnormal mammogram Discharge Disposition: Discharge to home or self care 04/16/2025 Results Follow-Up [facility] [address] [facility] [address] [place] [address] Erin Chau LPN Protime-INR, aPTT 04/16/[address] [address] Aline Sanders, LISA 04/11/2025 Anticoagulation Visit [facility] [address] [facility] [address] [place] [address] Nick Coello MD 04/04/[address] [address] Aline Sanders, RN 04/02/[address] [address] Aline Sanders, RN 03/29/[address] [address] Aline Sanders, RN 03/27/[address] [address] Aline Sanders, RN 03/26/2025 9:00 AM CDT Ancillary Procedure [facility] [address] [place] [address] Abnormal mammogram 03/26/2025 8:30 AM CDT Ancillary Procedure [facility] [address] [place] [address] Abnormal mammogram 03/26/2025 Telephone [facility] [address] [place] [address] Nick Colelo MD 03/19/2025 Anticoagulation Visit [facility] [address] [place] [address] Nick Coello MD 03/19/2025 Telephone [facility] [address] [place] [address] Nick Coello MD ASKING ABOUT LEFT STEREOTACTIC BREAST BIOPSY 02/27/2025 Anticoagulation Visit [facility] [address] [place] [address] Nikc Coello MD from Last 3 Months Immunizations Immunization Administration Dates Next Due Influenza, [...] 10/29/2023 Td, adsorbed 05/16/2010 ZOSTER Recombinant 08/02/2019,05/31/2019 Surgical History Surgery Date Site/Laterality Comments BRAIN SURGERY Left Decompressive Craniotomy FEMORAL ARTERY STENT 01/20/2018 Left CAROTID ENARTERECTOMYY 11/15/2012 - 11/14/2013 Right BREAST SURGERY Right Cyst removal in 1970s EYE SURGERY Bilateral Cataract surgery GASTROSTOMY TUBE PLACEMENT 03/24/2018 Placed while in hospital during admission for SAH. Removed after 4 months. SECTION COLONOSCOPY 10/29/2020 CRANIOTOMY BREAST BIOPSY 04/16/2025 Left Medical History Medical History Date Comments Diabetes mellitus (HCC) COPD (chronic obstructive pulmonary disease) (HC C) Stroke (HCC) Thyroid disease Type 2 diabetes mellitus without complication (H CC) 07/01/2017 HbA1c (06/05) 6.4 Acquired hypothyroidism 07/01/2017 Hypertension, essential 04/26/2018 Personal history of subdural hematoma 01/14/2020 Obesity 04/26/2018 BMI 33.48 Nicotine dependence, uncomplicated 07/01/2017 Recurrent deep vein thrombosis (DVT) (HCC) Family History Medical History Relation Name Comments Diabetes Brother Heart disease Brother Diabetes Father Heart attack Father Heart disease Father Hypertension Father Coronary artery disease Paternal Grandfather Heart attack Paternal Grandfather Diabetes Son Intellectual Disability Son Anesthesia problems Neg Hx Relation Name Status Comments Brother Father Paternal Grandfather Son Social History Tobacco Use [...] on file Legal Sex Female 12:03 PM ENGINEERING TECHNICAL ANALYST Gender Identity Not on file Sexual Orientation Not on file Occupation Industry Job Start Date Job End Date retired Not on file Not on file Not on file Obstetrics History Last Filed Vital Signs Vital Sign Reading [...] Description 05/29/2025 10:30 AM CDT Hospital Encounter [facility] Operating Room [address] [place] [address] Tommy Ford MD [address] [place] [address] [place] [address] 05/29/2025 10:30 AM CDT - 05/29/2025 12:10 PM CDT Surgery [facility] Operating Room 1 [place] [address] Tommy Ford MD [address] [place] [address] [place] [address] LEFT LUMPECTOMY WITH WIRE LOCALIZATION Scheduled Procedures Name Priority Associated Diagnoses Date/Ti me LUMPECTOMY Ductal carcinoma in situ (DCIS) of left breast 05/29/2025 10:30 AM CDT Health Maintenance Due Date Last Done Comments DTaP/Tdap/Td Vaccine (1 - Tdap) 05/17/2010 0 Dilated Eye Exam 05/21/2020 05/21/2019 Foot Exam 02/24/2024 02/23/2023, 10/0 05/2021, 07/31/2019, Additional history exists Covid-19 Vaccine (2023-12 5 season) 2024 10/29/2023, 08/24/2022, 03/10/2022, Additional history exists Osteoporosis Screening-Bone Density Scan 03/02/2025 03/02/2023, 09/06/2020 Hemoglobin A1C 05/27/2025 11/27/2024, 01/13, 10/11/2023, Additional history exists Influenza Vaccine (#1) 2025 , 10/29/2023, 09/02/2022, Additional history exists Albumin Creatinine Ratio, Urine 11/27/2025 11/27/2024, 07/27/2023, 03/05/2022, Additional history exists Depression Screening 11/27/2025 11/27/2024, 09/02/2022, 02/13/2021, Additional history exists Fall Risk Assessment 11/27/2025 11/27/2024, 11/10/2023, 02/13/2021, Additional history exists Lipid Panel 11/27/2025 11/27/2024, 05/15, 02/23/2023, Additional history exists Well Visit 65+ 11/27/2025 11/27/2024, 10/15, 02/23/2023, Additional history exists eGFR 11/27/2025 11/27/2024, 10/16, 10/11/2023, Additional history exists Colon Cancer Screening-Colonoscopy 10/29/2030 10/29/2020 Lung Cancer Screening 07/02/2032 03/31/2022, 016 Hepatitis C Screening Completed 03/18/2018 , 03/18/2018, 03/19/2017 Pneumococcal vaccine 65+ Completed 019, 09/15/2016, 03/29/2013 Zoster Vaccine Completed 08/02/2019, 05/31/2019 Colon Cancer Screening-CT Colonography Discontinued 10/29/2020 Colon Cancer Screening-DNA Stool Discontinued 10/29/2020, 07/22/2020, 09/07/2018 Colon Cancer Screening-FIT Discontinued 10/29, 07/22/2020, 09/07/2018 Colon Cancer Screening-Sigmoidoscopy Discontinued 10/29/2020 Breast Cancer Screening-Mammogram Discontinued 03/26/2025, 03/24/2024, 03/09/2023, Additional history exists Hepatitis B Screening Discontinued Medical Devices Implanted Type Area Fourdrinier Machine Operator Device Identifier Shelf Expiration Date Model / Serial / Lot [employer] Marker Tissue Side Deploy Applicator U Shaped Radiopaque Clip Titanium Collagen Revolve 10ga [id number] - [id number] - [id number] Implanted:Qty: 1 on 04/16/2025 by Ilan Duncan MD at [facility] Breast Left: Breast [employer] 04/11/2026 [id number] / [id number] Description:Implanted Left B reast Outer Mid Stent Vascular Zilver Ptx L60 Mm L125 Cm Od6 Mm Peripheral Drug Elute Otw Delivery System Accepts .035 In Guidewire 6 Fr Sheath - [id number] Implanted:Qty: 1 on 03/10/2018 by Santana Martinez MD at [facility] 07/15/2019 [id number] / / [id number] Stent Vascular Smart Control Micromarker Nitinol L60 Mm L120 Cm Od8 Mm Iliac Self Expand Micromesh Segment Delivery Handle Sterile Latex Free Disposable Accepts .035 In Guidewire 6 Fr Sheath 8 Fr Guide Catheter 6-7 Mm Vessel - [id number] Implanted:Qty: 1 on 03/10/2018 by Santana Martinez MD at [facility] 05/14/2019 [id number] L / / [id number] Tracie Craniomaxillofacia l [id number] Duramatrix-Onlay 5x4in Conformable Resorbable Cranium Patch Dural - [id number] Implanted:Qty: 1 on 05/13/2018 by Yehuda Odonnell MD PhD at [facility] Left: Brain Tracie Craniomaxillofacial [id number] 10/14/2020 [facility] / / [id number] Procedures Procedure Name Priority Date/Time Associated [...] Routine 02/26/2025 EGFR Routine 11/27/2024 1:26 PM ENGINEERING TECHNICAL ANALYST Type 2 diabetes mellitus without complication, without long-term current use of insulin (HCC) Hypertension, essential HEMOGLOBIN A1C Routine 11/27/2024 1:26 PM ENGINEERING TECHNICAL ANALYST Type 2 diabetes mellitus without complication, without long-term current use of insulin (HCC) LIPID PANEL Routine 11/27/2024 1:26 PM ENGINEERING TECHNICAL ANALYST Mixed 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 (HCC) ALBUMIN CREATININE RATIO, URINE Routine 11/27/2024 1:26 PM ENGINEERING TECHNICAL ANALYST Type 2 diabetes mellitus without complication, without long-term current use of insulin (HCC) Hypertension, essential DEXA AXIAL SKELETON BONE DENSITY 1 OR MORE SITES Schedule Routine, Read Routine (OP Routine) 03/02/2023 11:[address] LUNG CANCER SCREENING Schedule Routine, Read Routine (OP Routine) 03/31/2022 11:55 AM CDT Cigarette nicotine dependence without complication COLONOSCOPY 10/29/2020 11:52 AM ENGINEERING TECHNICAL ANALYST HM DIABETES EYE EXAM Routine 05/21/2019 [...] results and recommended follow-up by Rick Alvarenga, electronics engineering technologist, via [facility] message on 04/18/2025. Electronically signed by: Ilan [...] the expected position. us Nick Coello MD IMG MAMMO PROCEDURES Edite d Result - Final * Surgical pathology (04/16/2025 11:25 AM CDT) Tissue (Breast biopsy, needle core) 04/16/2025 11:13 AM CDT Narrative PATHOLOGY COUNT INCLUDES THE [facility] ([place]) - 04/18/2025 10:29 AM CDT EPIC results best viewed via link to PDF [facility] Department of Pathology [address] [place] [address] Note to Patients: This report may contain [...] with Addendum Patient Name: ROEL LUND Address: [address] [place] [address] Gender: F : 1950 (Age: 74) Service: Location: N : [id number] Hospital #: [id number] Patient Type: [facility] ANCILLARY Taken: 04/16/2025 Received: 04/16/2025 Accessioned: 04/16/2025 [...] on Block Number(s): [id number] METHODS Fixative: Formalin [facility] VERSION: Breast Biomarker Reporting 1.5.0.1 Vera Ramirez [...] in a single formalin filled container labeled ROEL LUND and stereotactic breast biopsy left outer mid; [...] embedded as A6. Removed from patient on 09 27, 04/16/2025 and placed in formalin at 10 05, 04/16/2025, removed from formalin 1744, 04/16/2025. Formalin fixation times are in compliance with ASCO/CAP guidelines. Becky Funes/Vera Ramirez M.D. REPORT IMAGES AND SCANNED DOCUMENTS, IF INCLUDED, ONLY VIEWABLE IN PDF VERSION OF REPORT The performance characteristics of some immunohistochemical stains, fluorescence in-situ hybridization tests and immunophenotyping by flow cytometry cited in this report (if any) were determined by the Surgical Pathology Department at [facility] as part of an ongoing quality nurse program and in compliance with federally mandated [...] characteristics determined by the Surgical Pathology Department [facility]. It has not been cleared or approved by the U. S. Food and Drug Administration. Note for decalcified specimens: This assay has not been validated on decalcified tissues. Results should be interpreted with caution given the possibility of false negativity on decalcified specimens us Nick Coello MD LAB PATHOLOGY ORDERABLES F inal Result PATHOLOGY COUNT INCLUDES THE [facility] ([place]) [address] [place] [address] * aPTT (04/16/2025 10:15 AM CDT) aPTT 33 28 - 38 sec [facility] ([place]) Comment: Interpretive Data Heparin therapeutic range: 66.0 - 100.0 seconds. Range based on correlation with therapeutic heparin activity range of 0.3 - 0.7 Units/mL. Current interpretive data was last revised on 2023. Blood 04/16/2025 10:1 5 AM CDT 04/16/2025 10:18 AM CDT us Nick Coello MD LAB BLOOD ORDERABLES Final Result [facility] ([place]) 1 [facility] [place] [address] * Protime-INR (04/16/2025 10:15 AM CDT) PT 11.6 9.7 - 13.0 sec [facility] ([place]) INR 1.07 0.90 - 1.20 [facility] ([place]) Comment: Interpretive data Oral anticoagulant therapeutic ranges: Venous thromboembolism prophylaxis or treatment: 2.0-3.0 CARDIOLOGY Standard range: 2.0-3.0 High-intensity range: 2.5-3.5 Refer to indication-specific guidelines for appropriate target ranges for prosthetic heart valve replacement. Current interpretive data was last revised on 2019. Blood 04/16/2025 10:1 5 AM CDT 04/16/2025 10:18 AM CDT us Nick Coello MD LAB BLOOD ORDERABLES Final Result [facility] ([place]) 1 [facility] [place] [address] * (ABNORMAL) Protime-INR (04/07/2025) INR 3.00(A) 0.90 [...] suspicious microcalcifications is appreciated. Nick Coello MD IMG MAMMO PROCEDURES Final Result * (ABNORMAL) Diagnostic [...] suspicious microcalcifications is appreciated. Nick Coello MD IMG MAMMO PROCEDURES Final Result * (ABNORMAL) Protime-INR (03/17/2025) INR 3.10(A) 0.90 - 1.10 EXTERNAL LAB Blood Narrative Resulting Agency Comment [facility] Nick Coello MD LAB BLOOD ORDERABLES Final Result EXTERNAL LAB * (ABNORMAL) Protime-INR (02/26/2025) INR 2.80(A) 0.90 - 1.10 EXTERNAL LAB Blood Narrative Resulting Agency Comment [facility] INR us iNck Coello MD LAB BLOOD ORDERABLES Final Result Performing Organization Address [facility] de Phone Number EXTERNAL LAB * (ABNORMAL) eGFR (11/27/2024 1:26 PM ENGINEERING TECHNICAL ANALYST) eGFR 34(L) >=60 mL/min/1. 73 m2 [...] was last reviewed 2021. Testing performed by: [address] [address] Blood 11/27/2024 1:26 PM ENGINEERING TECHNICAL ANALYST 11/27/2024 9:06 PM ENGINEERING TECHNICAL ANALYST us Nick Coello MD LAB BLOOD ORDERABLES Final Result Performing Organization Address [facility]/ZIP Co de Phone Number [facility] [address] [facility] Department [place] [address] * (ABNORMAL) Albumin Creatinine Ratio, Urine (11/27/2024 1:26 PM ENGINEERING TECHNICAL ANALYST) Albumin Ur 1,876.6 mg/L Comment: Interpretive Data No reference range established. Current interpretive data was last revised 2019. Testing performed by: [address] [place]., [address] Creatinine Ur 157.9 mg/dL RACHELLE Comment: Interpretive Data No reference range established. Current interpretive data was last revised 2019. Testing performed by: [facility], [address] [place] [address]., [address] Albumin Creatinine Ratio, Ur 1,188(H) 1 - 29 mg/g RACHELLE Comment:Testing performed by : [address] [address] Urine 11/27/2024 1:26 PM ENGINEERING TECHNICAL ANALYST 11/27/2024 8:50 PM ENGINEERING TECHNICAL ANALYST Nick Coello MD LAB URINE ORDERABLES Final Result Performing Organization Address [facility] de Phone Number [facility] [address] [facility] Department [address] [place] [address] * (ABNORMAL) Hemoglobin A1c (11/27/2024 1:26 PM ENGINEERING TECHNICAL ANALYST) [facility] Hgb A1C 6.6(H) 4.0 - 5.6 % Comment:Testing performed by : [address] [address] Estimated Average Glucose 143 mg/dL RACHELLE Comment: The ADA recommends reporting an estimated Average Glucose (eAG) with all Hemoglobin A1c results using the equation derived from a study of 507 normal and diabetic adults. Minority populations were underrepresented and children were not included. (Diabetes Care 31:7065-1393, 2008). The eAG is not equivalent to a fasting glucose. Testing performed by: [address] [address] Blood 11/27/2024 1:26 PM ENGINEERING TECHNICAL ANALYST 11/27/2024 8:50 PM ENGINEERING TECHNICAL ANALYST Nick Coello MD LAB BLOOD ORDERABLES Final Result Performing Organization Address [facility] Co de Phone Number [facility] [address] [facility] [place] [address] * Lipid panel (11/27/2024 1:26 PM ENGINEERING TECHNICAL ANALYST) Cholesterol 152 30 - 199 mg/dL [...] last revised on 2018. Testing performed by: [address] [address] Triglycerides 142 <=149 mg/dL [facility]HELLE Comment: Interpretive [...] last revised on 2018. Testing performed by: [facility], [address] [place] [address]., [address] HDL 45 >=40 mg/dL RACHELLE Comment: Interpretive [...] last revised on 2018. Testing performed by: [facility], [address] [place] [address]., [address] LDL, calculated 82 <=129 mg/dL RACHELLE Comment: Interpretive Data Ages < [...] last revised on 2024. Testing performed by: [address] [address] Non-HDL Cholesterol 107 mg/dL [facility] Comment: Interpretive Data Ages < or = [...] last revised on 2018. Testing performed by: [address] [address] Chol/HDL ratio 3 [facility] Comment:Testing performed by : [address] [address] Blood 11/27/2024 1:26 PM ENGINEERING TECHNICAL ANALYST 11/27/2024 8:50 PM ENGINEERING TECHNICAL ANALYST Nick Coello MD LAB BLOOD ORDERABLES Final Result [facility] [place] [address] [address] Department [place] [address] * Dexa Axial Skeleton Bone Density 1 or 2 Site (03/02/2023 11:19 AM CDT) Anatomical Region Laterality Modality Body N/A Other 03/02/2023 4:45 PM CDT Narrative 03/02/2023 4:46 PM CDT EXAM DESCRIPTION: DEXA AXIAL SKELETON BONE DENSITY 1 OR MORE SITES REASON FOR STUDY: 72 y/o year old F with given history of screening. Postmenopausal Fourdrinier Machine Operator/Model: CapLinked SL (S/N [id number]) CLINICAL INFORMATION: Current height: 66 inches Maximum [...] Shun Rivera M.D. MF: DEAN Report ID: [id number] Reading Location: [place] [address] Procedure Note Shun Rivera MD - 03/02/2023 EXAM DESCRIPTION: DEXA AXIAL SKELETON BONE DENSITY 1 OR MORE SITES REASON FOR STUDY: 72 y/o year old F with given history of screening. Postmenopausal Fourdrinier Machine Operator/Model: Brandicted Discovery SL (S/N [id number]) CLINICAL INFORMATION: Current height: 66 inches Maximum [...] Shun Rivera M.D. MF: DEAN Report ID: [id number] Reading Location: [place] [address] us Nick Coello MD IMG DXA PROCEDURES Final [...] Simone Timmons M.D. RL: KO Report ID: [id number] Reading Location: [id number] 04/01/2022 10:21 AM CDT EXAM DESCRIPTION: CT [...] in the coronary arteries. No pericardial effusion. [id number] calcified plaques in the thoracic aorta. The [...] Re sult * COLONOSCOPY (10/29/2020 11:52 AM ENGINEERING TECHNICAL ANALYST) Anatomical Region Laterality Modality Other Narrative Procedure Note Nick Contreras MD - 10/29/2020 11:52 AM CST [facility] Patient Name: Roel Lund Procedure Date: 10/29/2020 11:52AM Date of : 1950 Admit Type: Outpatient Age: 70 Gender: Female Attending MD: Nick Contreras M.D. Room: COUNT INCLUDES THE [facility] ENDOSCOPY ROOM 1 Note Status: Finalized [...] passed under direct vision.The Pediatric Colonoscope [id number]-[id number] was introduced through the anus and advanced [...] 11:52 AM Procedure Code(s): --- Professional --- 10885, Colonoscopy, flexible; with removal of tumor(s), polyp(s), or other lesion(s) by snare technique Diagnosis Code(s): --- Professional --- Z12.11, Encounter for screening for malignant neoplasm of colon D12.3, Benign neoplasm of transverse colon (hepatic flexure orsplenic flexure) CPT copyright 2017 [employer]. All rights reserved. The codes documented in this report are preliminary and upon legal adviser reviewmay be revised to meet current compliance requirements. Recognized by the [employer] for promoting quality in endoscopy Nick Contreras MD ENDOSCOPY PROCEDURES Final Result * DIABETES EYE EXAM (05/21/2019) Diabetic Eye Exam Normal Historical Provider HEALTH MAINTENANCE Final Result * Hepatitis C antibody (03/18/2018 3:40 PM CDT) Hep C Ab Nonreactive Nonreactive [facility] Comment: Interpretive Data Positive and greyzone results should be confirmed by a molecular method. If positive or greyzone, a second separately collected sample should be submitted for Hepatitis C Virus RNA. Detection and Quantitation by Real-Time Reverse Railroad Wheels And Axle Inspector-PCR.Current Interpretive data was last revised on 2017. Blood specimen (specimen) 03/18/2018 3:40 PM CDT 03/18/2018 4:14 PM CDT Narrative [facility] - 03/19/2018 9:19 AM CDT us Notinfile Unknown LAB MICROBIOLOGY - GENERAL ORD ERABLES Edited Result - Final [facility] Department [place] [address] from Last 3 Months or Most Recently Relevant to Health Maintenance Insurance [facility] MEDICARE ADVANTAGE [employer] MEDICARE ADVANTAGE Advance Directives For more information, please contact: [phone] * Full Code (Latest Code Status on [...] Relationship Healthcare Agent Relationship Communication [facility] e Health Care Agent Care Teams Secondary History Teacher Relationship Specialty Start Date End Date Nick Coello MD PCP - General 02/12/17 Santana Martinez MD Consulting Physician Cardiology 01/20/18 Rodolfo Reyes NP Nurse Practitioner Urology 12/22/23
--- OUTSIDE RECORDS SUMMARY | 2025-05-20 15:18 | XMS_ITS | Encounter Summary ---
Author Organization [facility] Address [address] [place] [address] Phone Care Team Providers Care Social Media Director Name Role Phone Nick Coello MD Primary Care Provider [phone] Santana Martinez MD Unavailable [phone] Rodolfo Reyes NP Unavailable [phone] Encounter Details Date Type Department Care Team (Late st Contact Info) Description 12/03/2017 Orders Only [facility] ProviderJing MD [address] [place] [address] Social History Tobacco Use Types Packs/Day Years Used Date Smoking Tobacco: Every Day Smokeless Tobacco: Never Comments Unknown Sex and Gender Information Value Date Recorded Sex Assigned at Not on file Legal Sex Female 12:03 PM DEMOGRAPHER Gender Identity Not on file Sexual Orientation Not on file documented as of this encounter Plan of Treatment Upcoming Encounters Date Type Department Care Team (Late st Contact Info) Description 05/29/2025 10:30 AM CDT Hospital Encounter [facility] Operating Room [address] [place] [address] Tommy Ford MD [address] [place] [address] [address] [place] [address] 05/29/2025 10:30 AM CDT - 05/29/2025 12:10 PM CDT Surgery [facility] Operating Room [address] [place] [address] Tommy Ford MD [address] [place] [address] [address] [place] [address] LEFT LUMPECTOMY WITH WIRE LOCALIZATION Scheduled Procedures Name Priority Associated Diagnoses Date/Ti me LUMPECTOMY Ductal carcinoma in situ (DCIS) of left breast 05/29/2025 10:30 AM CDT documented as of this encounter Procedures Procedure Name Priority Date/Time Associated Diagnosis Comments DISCHARGE LABORATORY CUMULATIVE REPORT 12/03/2017 12:00 AM DEMOGRAPHER documented in this encounter Results * DISCHARGE LABORATORY CUMULATIVE REPORT (12/03/2017 12:00 AM DEMOGRAPHER) Narrative 12/03/2017 12:00 AM DEMOGRAPHER Ordered by an unspecified provider. us Historical Provider LAB BLOOD ORDERABLES Tiffanie l Result documented in this encounter Visit Diagnoses Not on filedocumented in this encounter Care Teams Social Media Director Relationship Specialty Start Date End Date Nick Coello MD PCP - General 02/12/17 Santana Martinez MD Consulting Physician Cardiology 01/20/18 Rodolfo Reyes NP Nurse Practitioner Urology 12/22/23 documented as of this encounter
--- OUTSIDE RECORDS SUMMARY | 2025-05-20 15:18 | XMS_ITS | Encounter Summary ---
Author Organization [facility] Address [address] [place] [address] Phone Care Team Providers Care Hvac Residential Service Technician Name Role Phone Nick Coello MD Primary Care Provider Santana Martinez MD Unavailable [phone] Rodolfo Reyes NP Unavailable [phone] Encounter Details Date Type Department Care Team (Late st Contact Info) Description 10/22/2017 Orders Only [facility] ProviderJing MD [address] [place] [address] Social History Tobacco Use Types Packs/Day Years Used Date Smoking Tobacco: Never Assessed Comments Unknown Sex and Gender Information Value Date Recorded Sex Assigned at Not on file Legal Sex Female 12:03 PM STATISTICAL PROGRAMMER ANALYST Gender Identity Not on file Sexual Orientation Not on file documented as of this encounter Plan of Treatment Upcoming Encounters Date Type Department Care Team (Late st Contact Info) Description 05/29/2025 10:30 AM CDT Hospital Encounter [facility] Operating Room [address] [place] [address] Tommy Ford MD [address] [place] [address] [address], [place] [address] 05/29/2025 10:30 AM CDT - 05/29/2025 12:10 PM CDT Surgery [facility] Operating Room [address] [place] [address] Tommy Ford MD [address] [place] [address] [address] [place] [address] LEFT LUMPECTOMY WITH WIRE LOCALIZATION Scheduled Procedures Name Priority Associated Diagnoses Date/Ti me LUMPECTOMY Ductal carcinoma in situ (DCIS) of left breast 05/29/2025 10:30 AM CDT documented as of this encounter Procedures Procedure Name Priority Date/Time Associated Diagnosis Comments DISCHARGE LABORATORY CUMULATIVE REPORT 10/22/2017 12:00 AM STATISTICAL PROGRAMMER ANALYST documented in this encounter Results * DISCHARGE LABORATORY CUMULATIVE REPORT (10/22/2017 12:00 AM STATISTICAL PROGRAMMER ANALYST) Narrative 10/22/2017 12:00 AM STATISTICAL PROGRAMMER ANALYST Ordered by an unspecified provider. Historical Provider LAB BLOOD ORDERABLES Tiffanie l Result documented in this encounter Visit Diagnoses Not on filedocumented in this encounter Care Teams Hvac Residential Service Technician Relationship Specialty Start Date End Date Nick Coello MD PCP - General 02/12/17 Santana Martinez MD Consulting Physician Cardiology 01/20/18 Rodolfo Reyes NP Nurse Practitioner Urology 12/22/23 documented as of this encounter
[2025-05-20 15:27] VITALS: BP 151/77; PULSE 57; RESP 20; TEMP 37.1; O2SAT 98
--- NOTE | 2025-05-20 15:38 | ED.SKABFB ---
HPI - Skin/Abscess/Foreign Bdy General Chief complaint: Skin/Abscess/Foreign Body Stated complaint: Rash Time Seen by Provider: 05/20/25 15:14 patient presents to Express Care with complaints of worsening rash to lower abdomen in skin fold that began over the last 2 weeks. Patient noted that the rash has been there about 2 years. Patient was given a powder nystatin medication but patient states she is unsure if this is actually getting where it is supposed to be. No other medications attempted for symptoms. Related Data Home Medications ?Medication ?Instructions ?Recorded ?Confirmed ?Last Taken ?Type cilostazol 50 mg tablet 50 mg PO BID 07/03/21 07/03/21 Unknown History levothyroxine 125 mcg tablet 125 mcg PO DAILY 07/03/21 07/03/21 Unknown History losartan 25 mg tablet 25 mg PO DAILY 07/03/21 07/03/21 Unknown History metformin 850 mg tablet 850 mg PO BID 07/03/21 07/03/21 Unknown History pravastatin 40 mg tablet 40 mg PO BID 07/03/21 07/03/21 Unknown History warfarin 4 mg tablet 4 mg PO DAILY 07/03/21 07/03/21 Unknown History Allergies Allergy/AdvReac Type Severity Reaction Status Date / Time No Known Allergies Allergy Verified 07/03/21 18:56 Review of Systems Constitutional: Constitutional: Reports as per HPI, Denies chills, Denies fatigue, Denies fever(s) and Denies weakness Eyes: Eyes: Reports no additional eye complaints Cardiovascular: Cardiovascular: Reports no additional cardiovascular complaints Respiratory: Respiratory: Reports no additional respiratory complaints Gastrointestinal: Gastrointestinal: Reports no additional gastrointestinal complaints Genitourinary: Genitourinary: Reports no additional female genitourinary complaints Musculoskeletal: Musculoskeletal: Reports no additional musculoskeletal complaints Integumentary/Breasts: Skin/Breast: Reports as per HPI, Reports pruritus, Reports erythema, Reports rash and Denies skin ulcer Neurologic: Reports system reviewed and no additional complaints, except as documented Psychiatric: Psychiatric: Reports no additional psychiatric complaints Endocrine: Endocrine: Reports no additional endocrine complaints Hematologic/Lymphatic: Hematologic/Lymphatic: Reports no additional hematologic/lymphatic complaints Allergic/Immunologic: Allergic/Immunologic: Reports no additional allergic/immunologic complaints [facility] Past Medical History Medical History (Updated 05/20/25 @ 15:43 by DONNELL Bates-C) Diabetes Hyperlipidemia Hypertension CVA (cerebral vascular accident) Surgical History Surgical History (Updated 07/03/21 @ 19:00 by Belkis Martinez APRN) Previous section Social History Social History (Updated 07/03/21 @ 18:59 by Belkis Martinez APRN) Smoking status: Current every day smoker Exam Const: General: healthy appearing and no acute distress Nutritional Appearance: well nourished Orientation/consciousness: patient oriented x3 Limitations: no limitations Resp: Effort & Inspection: normal respiratory effort Auscultation: clear to auscultation bilaterally Cardio: Rate: regular rate Rhythm: regular rhythm Skin: General skin exam: normal color Wounds: wounds noted Other: diffuse erythematous rash to pannus with satellite lesions and thick white discharge noted. Neuro: General: patient oriented x3 Speech: normal speech Gait exam (Neuro): Normal gait present Psych: Mental Status: mental status grossly normal Affect: normal affect Attitude: cooperative Course Course Level of Care: Express Care Visit MDM - Skin/Abscess/Foreign Bdy MDM Narrative Medical decision making narrative: Discharge instructions reviewed with patient, as well as provided in writing per nursing staff. The instructions also include specific and strict return/GO TO THE ER as well as f/u information. All questions have been answered, and the patient deny any further questions with discharge and discharge plan. Differential Diagnosis Differential diagnosis: Likely urticaria, cellulitis, insect bites, impetigo and contact dermatitis Medical Records Attestation: I reviewed the patient's medical records. Discharge Plan Discharge Clinical Impression: Yeast infection of the skin Patient Disposition: Home Condition: Stable Instructions: Antibiotic Form, Skin Yeast Infection (ED) Additional Instructions: Take the oral tablets as directed this will help calm down the rash. Use the topical medication 3 times daily directly on the rash. Use the topical medication until rash is gone. May purchase Interdry sheets to place in a year to ensure to keep the area dry and clean. Follow-up with primary care within the next week for further evaluation. Patient Language: Tamazight Prescriptions: New nystatin 100,000 unit/gram cream 1 applic topical TID Qty: 60 0RF fluconazole 150 mg tablet 150 mg PO Q3D Qty: 2 0RF No Action pravastatin 40 mg Tablet 40 mg PO BID metformin 850 mg Tablet 850 mg PO BID cilostazol 50 mg Tablet 50 mg PO BID warfarin 4 mg Tablet 4 mg PO DAILY levothyroxine 125 mcg Tablet 125 mcg PO DAILY losartan 25 mg Tablet 25 mg PO DAILY Follow-up/Referrals: Oumou,Nick Zhu MD [Primary Care Provider] - Time of Disposition: 15:43
== END 2025-05-20 15:57 | disposition home or self-care (01) ==
PROVIDERS: Emergency Provider Nurse Practitioner Family; PCP Internal Medicine
DX: B37.2 Candidiasis of skin and nail (principal); E11.9 Type 2 diabetes mellitus without complications; Z79.84 Long term (current) use of oral hypoglycemic drugs; I10 Essential (primary) hypertension; E78.5 Hyperlipidemia, unspecified; F17.200 Nicotine dependence, unspecified, uncomplicated; Z86.73 Personal history of transient ischemic attack (TIA), and cerebral infarction without residual deficits
CPT/HCPCS: 99213; G0463